=== PATIENT | female | born 1945 | race Caucasian/White ===

== ENCOUNTER 2016-05-08 02:24 | Emergency (ER) | payer MEDICARE ==
[~2016-05-08] VITALS: Ht 152.4 cm; Wt 54.0 kg
[~2016-05-08 02:24] MED LIST: AMLO-512 PO; ASPI81 PO; ATOR40TA28 PO; CLON.1 PO; GABA-529 PO; INSU3INS3 SQ; ISOS60TA4 PO; METO-327 PO; METO10TA3 PO; SERT50TA12 PO; SEVEC800 PO; VALS40TA10 PO
[2016-05-08 02:40] LABS: GLUCOSE,POINT OF CARE 132 MG/DL (70-110)
[2016-05-08 03:55] LABS: BASOPHILS # (AUTO) 0.02 K/uL (0.00-0.20); BASOPHILS % (AUTO) 0.3 % (0.0-2.0); EOSINOPHILS # (AUTO) 0.08 K/uL (0.00-0.70); EOSINOPHILS % (AUTO) 1.31 % (1.0-6.0); HEMATOCRIT 34.6 % (36-46); HEMOGLOBIN 11.4 g/dL (12.0-16.0); LYMPHOCYTES # (AUTO) 1.5 K/uL (1.0-4.8); LYMPHOCYTES % (AUTO) 24.6 % (22.0-44.0); MEAN CORPUSCULAR HEMOGLOBIN 30.2 pg (26.0-34.0); MEAN CORPUSCULAR HGB CONC 32.9 G/dL (31.0-37.0); MEAN CORPUSCULAR VOLUME 92 fL (80-100); MONOCYTES # (AUTO) 0.7 K/uL (0.1-1.0); MONOCYTES % (AUTO) 11.3 % (2.0-9.0); NEUTROPHILS # (AUTO) 3.9 K/uL (1.8-7.7); NEUTROPHILS % (AUTO) 62.5 % (40.0-70.0); PLATELET COUNT (AUTO) 161 K/uL (150-450); RED BLOOD CELL COUNT(AUTO) 3.78 MIL/uL (4.00-5.20); RED CELL DISTRIBUTION WIDTH 14.1 % (11.5-14.5); WHITE BLOOD COUNT (AUTO) 6.2 K/uL (4.5-11.0)
[2016-05-08 03:59] LABS: CALCIUM, TOTAL 8.8 mg/dL (8.8-10.5); CREATININE 7.07 mg/dL (0.60-1.30)
[2016-05-08 04:05] LABS: ALBUMIN 3.3 g/dL (3.4-5.0); BILIRUBIN,TOTAL 0.5 mg/dL (0.1-1.0); TOTAL PROTEIN, SERUM 6.2 g/dL (6.4-8.2)
[2016-05-08] MEDS ORDERED: MORPHINE SULFATE 4 MG/ML SYRINGE IVP ONE (04:15)
[2016-05-08] MEDS ORDERED: DONNATAL/LIDOCAINE/MAALOX 55 ML BOTTLE PO ONE (04:15)
[2016-05-08] MEDS ORDERED: ONDANSETRON HCL 4 MG/2 ML VIAL IVP ONE (04:15)
[2016-05-08 05:21] VITALS: BP 152/82
[2016-07-03] MEDS ORDERED: GABA-529 PO (09:14)
[2016-07-03] MEDS ORDERED: LACT30L PO (09:14)
[2016-07-03] MEDS ORDERED: ACET-784 PO (09:14)
[2016-07-03] MEDS ORDERED: ZOLP5 PO (09:14)
[2016-07-03] MEDS ORDERED: VALS80TA2 PO (09:14)
[2016-07-03] MEDS ORDERED: SUCR1TAB PO (09:14)
[2016-07-03] MEDS ORDERED: AMLO-512 PO (09:14)
[2016-07-03] MEDS ORDERED: ATOR20TA86 PO (09:14)
[2016-07-03] MEDS ORDERED: ISOS60TA4 PO (09:14)
[2016-07-03] MEDS ORDERED: CARV6 PO (09:14)
[2016-07-03] MEDS ORDERED: BISA10S PR (09:14)
[2016-07-03] MEDS ORDERED: A20IH1 IH (09:14)
[2016-07-03] MEDS ORDERED: SERT50TA12 PO (09:14)
[2016-07-03] MEDS ORDERED: HYDR-309 PO (09:14)
[2016-07-03] MEDS ORDERED: LIDO700A30 TD (09:14)
[2016-07-03] MEDS ORDERED: PANT40TA25 PO (09:14)
[2016-07-03] MEDS ORDERED: OXYC-522 PO (09:14)
== END 2016-05-08 05:23 | disposition home or self-care (01) ==
LOC: EMS 02:25 → MERGE 02:25 → EMS 05:23
DX: R10.10 Upper abdominal pain, unspecified (principal); I10 Essential (primary) hypertension; E11.29 Type 2 diabetes mellitus with other diabetic kidney complication; N28.9 Disorder of kidney and ureter, unspecified; Z79.4 Long term (current) use of insulin; Z79.82 Long term (current) use of aspirin
CPT/HCPCS: 36415; 80053; 82962; 83690; 84484; 85025; 93005; 96374; 96375; 99285; J2270; J2405

== ENCOUNTER 2016-05-11 11:10 | Emergency (ER) | payer MEDICARE ==
[~2016-05-11] VITALS: Ht 162.6 cm; Wt 75.0 kg
[2016-05-11 11:26] LABS: GLUCOSE,POINT OF CARE 126 MG/DL (70-110)
[2016-05-11] MEDS ORDERED: VALS80TA2 PO (11:34)
[2016-05-11] MEDS ORDERED: MORPHINE SULFATE 4 MG/ML SYRINGE IVP ONE (11:45)
[2016-05-11] MEDS ORDERED: DONNATAL/LIDOCAINE/MAALOX 55 ML BOTTLE PO ONE (11:45)
[2016-05-11] MEDS ORDERED: ONDANSETRON HCL 4 MG/2 ML VIAL IVP ONE (11:45)
[2016-05-11 12:15] LABS: BASOPHILS # (AUTO) 0.03 K/uL (0.00-0.20); BASOPHILS % (AUTO) 0.5 % (0.0-2.0); EOSINOPHILS # (AUTO) 0.07 K/uL (0.00-0.70); HEMATOCRIT 38.8 % (36-46); HEMOGLOBIN 12.8 g/dL (12.0-16.0); LYMPHOCYTES # (AUTO) 1.8 K/uL (1.0-4.8); LYMPHOCYTES % (AUTO) 34.9 % (22.0-44.0); MEAN CORPUSCULAR HEMOGLOBIN 30.1 pg (26.0-34.0); MEAN CORPUSCULAR HGB CONC 32.9 G/dL (31.0-37.0); MEAN CORPUSCULAR VOLUME 91 fL (80-100); MONOCYTES # (AUTO) 0.5 K/uL (0.1-1.0); MONOCYTES % (AUTO) 8.7 % (2.0-9.0); NEUTROPHILS # (AUTO) 2.9 K/uL (1.8-7.7); NEUTROPHILS % (AUTO) 54.6 % (40.0-70.0); PLATELET COUNT (AUTO) 178 K/uL (150-450); RED BLOOD CELL COUNT(AUTO) 4.25 MIL/uL (4.00-5.20); RED CELL DISTRIBUTION WIDTH 15.2 % (11.5-14.5); WHITE BLOOD COUNT (AUTO) 5.3 K/uL (4.5-11.0)
[2016-05-11 12:24] LABS: CALCIUM, TOTAL 9.2 mg/dL (8.8-10.5); CREATININE 4.34 mg/dL (0.60-1.30); POTASSIUM 4.3 mmol/L (3.5-5.1)
[2016-05-11 12:30] LABS: ALBUMIN 3.7 g/dL (3.4-5.0); BILIRUBIN,TOTAL 0.5 mg/dL (0.1-1.0); TOTAL PROTEIN, SERUM 7.3 g/dL (6.4-8.2)
[2016-05-11 14:33] VITALS: BP 188/55
[2016-07-03] MEDS ORDERED: LIDO700A30 TD (09:14)
[2016-07-03] MEDS ORDERED: OXYC-522 PO (09:14)
[2016-07-03] MEDS ORDERED: A20IH1 IH (09:14)
[2016-07-03] MEDS ORDERED: VALS80TA2 PO (09:14)
[2016-07-03] MEDS ORDERED: SERT50TA12 PO (09:14)
[2016-07-03] MEDS ORDERED: GABA-529 PO (09:14)
[2016-07-03] MEDS ORDERED: ISOS60TA4 PO (09:14)
[2016-07-03] MEDS ORDERED: HYDR-309 PO (09:14)
[2016-07-03] MEDS ORDERED: BISA10S PR (09:14)
[2016-07-03] MEDS ORDERED: CARV6 PO (09:14)
[2016-07-03] MEDS ORDERED: ACET-784 PO (09:14)
[2016-07-03] MEDS ORDERED: AMLO-512 PO (09:14)
[2016-07-03] MEDS ORDERED: ZOLP5 PO (09:14)
[2016-07-03] MEDS ORDERED: PANT40TA25 PO (09:14)
[2016-07-03] MEDS ORDERED: LACT30L PO (09:14)
[2016-07-03] MEDS ORDERED: ATOR20TA86 PO (09:14)
[2016-07-03] MEDS ORDERED: SUCR1TAB PO (09:14)
== END 2016-05-11 15:30 | disposition home or self-care (01) ==
LOC: EMS 11:13 → MERGE 11:13 → EMS 15:30
DX: R10.13 Epigastric pain (principal); I10 Essential (primary) hypertension; E11.9 Type 2 diabetes mellitus without complications; N28.9 Disorder of kidney and ureter, unspecified; Z79.4 Long term (current) use of insulin; Z79.82 Long term (current) use of aspirin
CPT/HCPCS: 36415; 71010; 80053; 82271; 82962; 83605; 83690; 84484; 85025; 93005; 96374; 96375; 99285; J2270; J2405

== ENCOUNTER 2016-05-15 04:48 | Inpatient (IN) | payer MEDICARE ==
[~2016-05-15] VITALS: Ht 152.4 cm; Wt 56.3 kg
[~2016-05-15 04:48] MED LIST changes: -VALS40TA10 PO; +VALS80TA2 PO
[2016-05-15 05:06] LABS: GLUCOSE COMMENT 1 Doctor Notified; GLUCOSE,POINT OF CARE 138 MG/DL (70-110)
[2016-05-15 05:21] LABS: BASOPHILS % (AUTO) 0.3 % (0.0-2.0); EOSINOPHILS % (AUTO) 1.4 % (1.0-6.0); HEMATOCRIT 40.4 % (36-46); HEMOGLOBIN 12.9 g/dL (12.0-16.0); LYMPHOCYTES # (AUTO) 1.9 K/uL (1.0-4.8); LYMPHOCYTES % (AUTO) 27.6 % (22.0-44.0); MEAN CORPUSCULAR HEMOGLOBIN 29.6 pg (26.0-34.0); MEAN CORPUSCULAR HGB CONC 32.1 G/dL (31.0-37.0); MEAN CORPUSCULAR VOLUME 92 fL (80-100); MONOCYTES # (AUTO) 0.6 K/uL (0.1-1.0); MONOCYTES % (AUTO) 8.6 % (2.0-9.0); NEUTROPHILS # (AUTO) 4.2 K/uL (1.8-7.7); NEUTROPHILS % (AUTO) 62.1 % (40.0-70.0); PLATELET COUNT (AUTO) 210 K/uL (150-450); RED BLOOD CELL COUNT(AUTO) 4.37 MIL/uL (4.00-5.20); RED CELL DISTRIBUTION WIDTH 14.6 % (11.5-14.5); WHITE BLOOD COUNT (AUTO) 6.8 K/uL (4.5-11.0)
[2016-05-15 05:33] LABS: CALCIUM, TOTAL 9.2 mg/dL (8.8-10.5); CREATININE 6.69 mg/dL (0.60-1.30); POTASSIUM 5.6 mmol/L (3.5-5.1)
[2016-05-15 05:39] LABS: ALBUMIN 3.9 g/dL (3.4-5.0); BILIRUBIN,TOTAL 0.4 mg/dL (0.1-1.0); TOTAL PROTEIN, SERUM 7.4 g/dL (6.4-8.2)
[2016-05-15] MEDS ORDERED: SODIUM POLYSTYRENE SULFONATE 15 GM/60 ML SUSPENSION BOTTLE PO ONE (06:45)
[2016-05-15] MEDS ORDERED: MORPHINE SULFATE 4 MG/ML SYRINGE IVP ONE ×2 (06:45→09:00)
[2016-05-15] MEDS ORDERED: DONNATAL/LIDOCAINE/MAALOX 55 ML BOTTLE PO ONE (06:45)
[2016-05-15] MEDS ORDERED: ONDANSETRON HCL 4 MG/2 ML VIAL IVP ONE ×2 (06:45→09:00)
[2016-05-15 11:23] VITALS: BP 195/89
[2016-05-15] MEDS ORDERED: BISACODYL 10 MG RECTAL RECTAL SUPPOSITORY PR PRN (11:30)
[2016-05-15] MEDS: HEPARIN SODIUM,PORCINE 5,000 UNITS/ML VIAL SQ SCH ×2 (11:30→21:08)
[2016-05-15] MEDS ORDERED: IPRATROPIUM BROMIDE 0.5 MG/2.5 ML NEB SOLUTION NEB PRN (11:30)
[2016-05-15] MEDS ORDERED: MAGNESIUM HYDROXIDE SUSPENSION 30 ML UDCUP PO PRN (11:30)
[2016-05-15] MEDS ORDERED: DEXTROSE 50%-WATER 25 GM/50 ML SYRINGE IVP PRN (11:30)
[2016-05-15] MEDS ORDERED: ALBUTEROL SULFATE 2.5 MG/0.5 ML NEB SOLUTION NEB PRN (11:30)
[2016-05-15] MEDS ORDERED: HydrALAZINE HCL 20 MG/ML VIAL IVP PRN (11:30)
[2016-05-15] MEDS ORDERED: SODIUM CHLORIDE 0.9% 2,000 ML IV ONE (14:19)
[2016-05-15] MEDS: CloNIDine HCL 0.1 MG TABLET PO SCH ×2 (15:54→21:08)
[2016-05-15 16:00] VITALS: BP 199/95
[2016-05-15] MEDS: HYDROmorphone 2 MG/ML SYRINGE IVP PRN (16:07)
[2016-05-15] MEDS ORDERED: MANNITOL 25%-12.5 GM/50 ML VIAL IVP PRN (16:15)
[2016-05-15] MEDS ORDERED: ALBUMIN HUMAN 25%-12.5GM/50ML IV BOTTLE IV PRN (16:15)
[2016-05-15] MEDS: INSULIN ASPART 100 UNITS/ML SQ PRN (17:52)
[2016-05-15 19:53] VITALS: BP 175/70
[2016-05-15] MEDS: PANTOPRAZOLE SODIUM 40 MG/VIAL IVP SCH (21:07)
[2016-05-15] MEDS: ISOSORBIDE MONONITRATE 60 MG ER TABLET PO SCH (21:08)
[2016-05-16] VITALS (8 sets, daily range): BP systolic 106–156; BP diastolic 46–76
[2016-05-16] MEDS: ONDANSETRON HCL 4 MG/2 ML VIAL IVP PRN ×3 (02:41→23:46)
[2016-05-16 06:08] LABS: BASOPHILS # (AUTO) 0.01 K/uL (0.00-0.20); BASOPHILS % (AUTO) 0.2 % (0.0-2.0); EOSINOPHILS # (AUTO) 0.07 K/uL (0.00-0.70); EOSINOPHILS % (AUTO) 1.33 % (1.0-6.0); HEMOGLOBIN 12.7 g/dL (12.0-16.0); LYMPHOCYTES # (AUTO) 1.5 K/uL (1.0-4.8); LYMPHOCYTES % (AUTO) 27.3 % (22.0-44.0); MEAN CORPUSCULAR HGB CONC 32.6 G/dL (31.0-37.0); MEAN CORPUSCULAR VOLUME 92 fL (80-100); MONOCYTES # (AUTO) 0.4 K/uL (0.1-1.0); MONOCYTES % (AUTO) 8.2 % (2.0-9.0); NEUTROPHILS # (AUTO) 3.3 K/uL (1.8-7.7); PLATELET COUNT (AUTO) 190 K/uL (150-450); RED BLOOD CELL COUNT(AUTO) 4.24 MIL/uL (4.00-5.20); RED CELL DISTRIBUTION WIDTH 15.5 % (11.5-14.5); WHITE BLOOD COUNT (AUTO) 5.3 K/uL (4.5-11.0)
[2016-05-16 06:15] LABS: HEMOGLOBIN A1C 7.1 % (4.5-6.2)
[2016-05-16 06:38] LABS: AMYLASE 39 U/L (25-115); ANION GAP 5 mmol/L (8-16); CALCIUM, TOTAL 8.7 mg/dL (8.8-10.5); CARBON DIOXIDE 32 mmol/L (22-29); CHLORIDE 97 mmol/L (98-107); CHOL/HDL RATIO 3.2 (3.9-5.7); CREATINE KINASE, TOTAL 36 U/L (26-192); CREATININE 4.22 mg/dL (0.60-1.30); GLOMERULAR FILTR. RATE CALC 10 mL/min (>60); PHOSPHORUS 2.1 mg/dL (2.5-4.9); SODIUM SERUM 134 mmol/L (136-145); THYROID STIMULATING HORMONE 1.61 uIU/mL (0.36-3.74); UREA NITROGEN, BLOOD 17 mg/dL (7-18)
[2016-05-16 07:06] LABS: GLUCOSE,POINT OF CARE 120 MG/DL (70-110)
[2016-05-16 07:06] LABS: GLUCOSE,POINT OF CARE 147 MG/DL (70-110)
[2016-05-16] MEDS ORDERED: METOPROLOL SUCCINATE 100 MG ER TABLET PO SCH (09:00)
[2016-05-16] MEDS ORDERED: PANTOPRAZOLE SODIUM 40 MG/VIAL IVP SCH (09:00)
[2016-05-16] MEDS: CloNIDine HCL 0.1 MG TABLET PO SCH ×3 (09:52→20:08)
[2016-05-16] MEDS: PANTOPRAZOLE SODIUM 40 MG/VIAL IVP SCH ×2 (09:52→20:08)
[2016-05-16] MEDS: HEPARIN SODIUM,PORCINE 5,000 UNITS/ML VIAL SQ SCH ×2 (09:53→20:08)
[2016-05-16] MEDS: AmLODIPine BESYLATE 10 MG TABLET PO SCH (09:53)
[2016-05-16] MEDS: VALSARTAN 80 MG TABLET PO SCH (09:53)
[2016-05-16] MEDS ORDERED: SODIUM CHLORIDE 0.9% 1,000 ML IV ONE ×2 (11:30→14:24)
[2016-05-16] MEDS ORDERED: EPINEPHrine 1:1,000 [1 MG/ML] AMP IVP ONE (12:00)
[2016-05-16] MEDS ORDERED: ONDANSETRON HCL 4 MG/2 ML VIAL IVP ONE (12:00)
[2016-05-16] MEDS ORDERED: PROPOFOL 1% 20 ML VIAL IVP ONE (12:00)
[2016-05-16] MEDS ORDERED: LIDOCAINE HCL/PF 2% 5 ML VIAL INJ ONE (12:00)
[2016-05-16 12:11] LABS: GLUCOSE,POINT OF CARE 152 MG/DL (70-110)
[2016-05-16] MEDS: INSULIN ASPART 100 UNITS/ML SQ PRN ×2 (18:57→20:11)
[2016-05-16] MEDS: ISOSORBIDE MONONITRATE 60 MG ER TABLET PO SCH (20:08)
[2016-05-16] MEDS: HYDROmorphone 2 MG/ML SYRINGE IVP PRN (23:46)
[2016-05-17 04:09] VITALS: BP 130/51
[2016-05-17] MEDS: INSULIN ASPART 100 UNITS/ML SQ PRN ×3 (06:10→20:12)
[2016-05-17] MEDS: ONDANSETRON HCL 4 MG/2 ML VIAL IVP PRN ×2 (06:54→16:54)
[2016-05-17 07:22] LABS: BASOPHILS % (AUTO) 0.4 % (0.0-2.0); EOSINOPHILS % (AUTO) 1.4 % (1.0-6.0); HEMATOCRIT 36.5 % (36-46); HEMOGLOBIN 11.7 g/dL (12.0-16.0); LYMPHOCYTES # (AUTO) 2.2 K/uL (1.0-4.8); LYMPHOCYTES % (AUTO) 37.9 % (22.0-44.0); MEAN CORPUSCULAR HEMOGLOBIN 29.6 pg (26.0-34.0); MEAN CORPUSCULAR HGB CONC 32.1 G/dL (31.0-37.0); MEAN CORPUSCULAR VOLUME 92 fL (80-100); MONOCYTES # (AUTO) 0.6 K/uL (0.1-1.0); NEUTROPHILS # (AUTO) 2.8 K/uL (1.8-7.7); NEUTROPHILS % (AUTO) 49.3 % (40.0-70.0); PLATELET COUNT (AUTO) 191 K/uL (150-450); RED BLOOD CELL COUNT(AUTO) 3.96 MIL/uL (4.00-5.20); RED CELL DISTRIBUTION WIDTH 15.1 % (11.5-14.5); WHITE BLOOD COUNT (AUTO) 5.7 K/uL (4.5-11.0)
[2016-05-17 07:35] LABS: CREATININE 6.03 mg/dL (0.60-1.30); PHOSPHORUS 2.4 mg/dL (2.5-4.9); POTASSIUM 4.6 mmol/L (3.5-5.1)
[2016-05-17 07:37] LABS: MAGNESIUM 4.7 mg/dL (1.80-2.40)
[2016-05-17 07:45] VITALS: BP 110/54
[2016-05-17] MEDS ORDERED: GADOBUTROL 1 MMOL/ML 10 ML VIAL IVP ONE (08:38)
[2016-05-17] MEDS: HEPARIN SODIUM,PORCINE 5,000 UNITS/ML VIAL SQ SCH ×2 (09:43→20:09)
[2016-05-17] MEDS: PANTOPRAZOLE SODIUM 40 MG/VIAL IVP SCH ×2 (09:43→20:09)
[2016-05-17] MEDS: VALSARTAN 80 MG TABLET PO SCH (09:44)
[2016-05-17] MEDS: CloNIDine HCL 0.1 MG TABLET PO SCH ×3 (09:44→20:09)
[2016-05-17] MEDS: AmLODIPine BESYLATE 10 MG TABLET PO SCH (09:44)
[2016-05-17 11:24] VITALS: BP 103/50
[2016-05-17] MEDS ORDERED: MANNITOL 25%-12.5 GM/50 ML VIAL IVP PRN (13:00)
[2016-05-17] MEDS ORDERED: ALBUMIN HUMAN 25%-12.5GM/50ML IV BOTTLE IV PRN (13:00)
[2016-05-17 15:25] VITALS: BP 163/70
[2016-05-17] MEDS: HYDROmorphone 2 MG/ML SYRINGE IVP PRN (16:55)
[2016-05-17 19:28] VITALS: BP 109/54
[2016-05-17 19:46] LABS: GLUCOSE,POINT OF CARE 146 MG/DL (70-110)
[2016-05-17] MEDS: ISOSORBIDE MONONITRATE 60 MG ER TABLET PO SCH (20:09)
[2016-05-17 23:20] VITALS: BP 124/64
[2016-05-18] VITALS (7 sets, daily range): BP systolic 123–159; BP diastolic 41–72
[2016-05-18] MEDS: ONDANSETRON HCL 4 MG/2 ML VIAL IVP PRN ×4 (01:42→21:27)
[2016-05-18] MEDS: HYDROmorphone 2 MG/ML SYRINGE IVP PRN ×3 (01:42→16:51)
[2016-05-18] MEDS ORDERED: 0.9% SODIUM CHLORIDE 10 ML SYRINGE IVP PRN (02:45)
[2016-05-18] MEDS: INSULIN ASPART 100 UNITS/ML SQ PRN ×4 (06:00→20:39)
[2016-05-18 06:45] LABS: BASOPHILS % (AUTO) 0.4 % (0.0-2.0); EOSINOPHILS % (AUTO) 1.6 % (1.0-6.0); HEMATOCRIT 35.8 % (36-46); HEMOGLOBIN 11.5 g/dL (12.0-16.0); LYMPHOCYTES # (AUTO) 1.7 K/uL (1.0-4.8); LYMPHOCYTES % (AUTO) 33.2 % (22.0-44.0); MEAN CORPUSCULAR HEMOGLOBIN 30.1 pg (26.0-34.0); MEAN CORPUSCULAR HGB CONC 32.2 G/dL (31.0-37.0); MEAN CORPUSCULAR VOLUME 93 fL (80-100); MONOCYTES # (AUTO) 0.6 K/uL (0.1-1.0); MONOCYTES % (AUTO) 11.7 % (2.0-9.0); NEUTROPHILS # (AUTO) 2.7 K/uL (1.8-7.7); NEUTROPHILS % (AUTO) 53.1 % (40.0-70.0); PLATELET COUNT (AUTO) 194 K/uL (150-450); RED BLOOD CELL COUNT(AUTO) 3.84 MIL/uL (4.00-5.20); RED CELL DISTRIBUTION WIDTH 15.5 % (11.5-14.5); WHITE BLOOD COUNT (AUTO) 5.2 K/uL (4.5-11.0)
[2016-05-18 07:07] LABS: CALCIUM, TOTAL 9.3 mg/dL (8.8-10.5); CREATININE 3.59 mg/dL (0.60-1.30); MAGNESIUM 3.2 mg/dL (1.80-2.40); PHOSPHORUS 2.1 mg/dL (2.5-4.9); POTASSIUM 4.6 mmol/L (3.5-5.1)
[2016-05-18] MEDS: VALSARTAN 80 MG TABLET PO SCH (08:07)
[2016-05-18] MEDS: AmLODIPine BESYLATE 10 MG TABLET PO SCH (08:07)
[2016-05-18] MEDS: CloNIDine HCL 0.1 MG TABLET PO SCH ×4 (08:07→20:31)
[2016-05-18] MEDS: PANTOPRAZOLE SODIUM 40 MG/VIAL IVP SCH ×2 (08:07→20:30)
[2016-05-18] MEDS: HEPARIN SODIUM,PORCINE 5,000 UNITS/ML VIAL SQ SCH ×2 (08:07→20:31)
[2016-05-18] MEDS ORDERED: POTASSIUM PHOS,M-BASIC-D-BASIC 20 MMOL in DEXTROSE 5%-WATER 150 ML IV ONE (09:00)
[2016-05-18] MEDS: METOCLOPRAMIDE HCL 5 MG/ML 2 ML VIAL IVP SCH ×2 (12:07→20:31)
[2016-05-18 12:27] LABS: GLUCOSE,POINT OF CARE 259 MG/DL (70-110)
[2016-05-18 12:28] LABS: GLUCOSE,POINT OF CARE 149 MG/DL (70-110)
[2016-05-18 12:28] LABS: GLUCOSE COMMENT 1 Received Meds; GLUCOSE,POINT OF CARE 175 MG/DL (70-110)
[2016-05-18] MEDS ORDERED: SODIUM CHLORIDE 0.9% 1,000 ML IV ONE ×2 (14:59)
[2016-05-18] MEDS: ISOSORBIDE MONONITRATE 60 MG ER TABLET PO SCH (20:31)
[2016-05-18] MEDS ORDERED: ZOLPIDEM TARTRATE 5 MG TABLET PO PRN (22:30)
[2016-05-19] VITALS (9 sets, daily range): BP systolic 110–179; BP diastolic 51–79
[2016-05-19] MEDS: INSULIN ASPART 100 UNITS/ML SQ PRN ×3 (05:29→21:21)
[2016-05-19] MEDS: HYDROmorphone 2 MG/ML SYRINGE IVP PRN ×2 (06:11→10:17)
[2016-05-19 07:04] LABS: BILIRUBIN,TOTAL 0.6 mg/dL (0.1-1.0); CREATININE 3.15 mg/dL (0.60-1.30); POTASSIUM 4.3 mmol/L (3.5-5.1); TOTAL PROTEIN, SERUM 6.2 g/dL (6.4-8.2)
[2016-05-19] MEDS ORDERED: MANNITOL 25%-12.5 GM/50 ML VIAL IVP PRN (08:15)
[2016-05-19] MEDS: HEPARIN SODIUM,PORCINE 5,000 UNITS/ML VIAL SQ SCH ×2 (08:48→21:10)
[2016-05-19] MEDS: PANTOPRAZOLE SODIUM 40 MG/VIAL IVP SCH ×2 (08:48→21:10)
[2016-05-19] MEDS: AmLODIPine BESYLATE 10 MG TABLET PO SCH (09:39)
[2016-05-19] MEDS: ONDANSETRON HCL 4 MG/2 ML VIAL IVP PRN ×2 (09:39→14:01)
[2016-05-19] MEDS: METOCLOPRAMIDE HCL 5 MG/ML 2 ML VIAL IVP SCH ×2 (11:48→17:07)
[2016-05-19 12:17] LABS: GLUCOSE COMMENT 1 Received Meds; GLUCOSE,POINT OF CARE 152 MG/DL (70-110)
[2016-05-19 12:22] LABS: GLUCOSE COMMENT 1 Received Meds; GLUCOSE,POINT OF CARE 147 MG/DL (70-110)
[2016-05-19] MEDS: VITAMIN B COMP/VIT C/FOLIC ACID CAPSULE PO SCH (12:43)
[2016-05-19] MEDS: CloNIDine HCL 0.1 MG TABLET PO SCH ×3 (12:43→21:09)
[2016-05-19] MEDS: VALSARTAN 80 MG TABLET PO SCH (12:44)
[2016-05-19] MEDS: ISOSORBIDE MONONITRATE 60 MG ER TABLET PO SCH (21:09)
[2016-05-19] MEDS: LORazepam 2 MG/ML VIAL IVP PRN (21:10)
[2016-05-20 03:21] LABS: GLUCOSE,POINT OF CARE 245 MG/DL (70-110)
[2016-05-20 03:21] LABS: GLUCOSE COMMENT 1 Received Meds; GLUCOSE,POINT OF CARE 197 MG/DL (70-110)
[2016-05-20 04:26] VITALS: BP 105/43
[2016-05-20] MEDS: INSULIN ASPART 100 UNITS/ML SQ PRN ×2 (06:38→12:07)
[2016-05-20 07:26] VITALS: BP 98/45
[2016-05-20] MEDS: METOCLOPRAMIDE HCL 5 MG/ML 2 ML VIAL IVP SCH ×2 (07:47→11:31)
[2016-05-20] MEDS: HEPARIN SODIUM,PORCINE 5,000 UNITS/ML VIAL SQ SCH (07:48)
[2016-05-20] MEDS: PANTOPRAZOLE SODIUM 40 MG/VIAL IVP SCH (07:50)
[2016-05-20] MEDS: CloNIDine HCL 0.1 MG TABLET PO SCH (07:51)
[2016-05-20] MEDS: VALSARTAN 80 MG TABLET PO SCH (07:51)
[2016-05-20] MEDS: VITAMIN B COMP/VIT C/FOLIC ACID CAPSULE PO SCH (08:46)
[2016-05-20] MEDS ORDERED: AmLODIPine BESYLATE 5 MG TABLET PO SCH (09:00)
[2016-05-20 10:06] VITALS: BP 145/64
[2016-05-20 10:30] LABS: ANION GAP 4 mmol/L (8-16); BASOPHILS # (AUTO) 0.02 K/uL (0.00-0.20); BASOPHILS % (AUTO) 0.3 % (0.0-2.0); CALCIUM, TOTAL 10.1 mg/dL (8.8-10.5); CARBON DIOXIDE 30 mmol/L (22-29); CHLORIDE 97 mmol/L (98-107); CREATININE 3.39 mg/dL (0.60-1.30); EOSINOPHILS # (AUTO) 0.08 K/uL (0.00-0.70); EOSINOPHILS % (AUTO) 1.25 % (1.0-6.0); GLOMERULAR FILTR. RATE CALC 13 mL/min (>60); HEMATOCRIT 36.1 % (36-46); HEMOGLOBIN 11.7 g/dL (12.0-16.0); LYMPHOCYTES # (AUTO) 2.6 K/uL (1.0-4.8); LYMPHOCYTES % (AUTO) 39.5 % (22.0-44.0); MEAN CORPUSCULAR HEMOGLOBIN 29.9 pg (26.0-34.0); MEAN CORPUSCULAR HGB CONC 32.5 G/dL (31.0-37.0); MEAN CORPUSCULAR VOLUME 92 fL (80-100); MONOCYTES # (AUTO) 0.6 K/uL (0.1-1.0); MONOCYTES % (AUTO) 9.5 % (2.0-9.0); NEUTROPHILS # (AUTO) 3.2 K/uL (1.8-7.7); NEUTROPHILS % (AUTO) 49.4 % (40.0-70.0); PLATELET COUNT (AUTO) 205 K/uL (150-450); POTASSIUM 4.1 mmol/L (3.5-5.1); RED BLOOD CELL COUNT(AUTO) 3.93 MIL/uL (4.00-5.20); RED CELL DISTRIBUTION WIDTH 15.2 % (11.5-14.5); SODIUM SERUM 131 mmol/L (136-145); UREA NITROGEN, BLOOD 17 mg/dL (7-18); WHITE BLOOD COUNT (AUTO) 6.5 K/uL (4.5-11.0)
[2016-05-20 10:35] LABS: ALANINE AMINOTRANSFERASE 27 U/L (12-78); ALBUMIN 3.4 g/dL (3.4-5.0); ASPARTATE AMINOTRANSFERASE 22 U/L (15-37); BILIRUBIN,TOTAL 0.6 mg/dL (0.1-1.0); CREATINE KINASE, TOTAL 59 U/L (26-192); TOTAL PROTEIN, SERUM 6.7 g/dL (6.4-8.2)
[2016-05-20 10:57] VITALS: BP 155/56
[2016-05-20] MEDS ORDERED: PANT40TA PO (11:42)
[2016-05-20] MEDS: LORazepam 2 MG/ML VIAL IVP PRN (12:04)
[2016-05-28 12:32] LABS: GLUCOSE,POINT OF CARE 253 MG/DL (70-110)
[2016-05-28 12:32] LABS: GLUCOSE,POINT OF CARE 164 MG/DL (70-110)
[2016-05-28 12:32] LABS: GLUCOSE COMMENT 1 Received Meds; GLUCOSE,POINT OF CARE 244 MG/DL (70-110)
[2016-05-28 12:32] LABS: GLUCOSE,POINT OF CARE 145 MG/DL (70-110)
[2016-05-28 12:42] LABS: GLUCOSE COMMENT 1 Received Meds; GLUCOSE,POINT OF CARE 266 MG/DL (70-110)
[2016-05-28 12:42] LABS: GLUCOSE,POINT OF CARE 130 MG/DL (70-110)
[2016-05-28 12:42] LABS: GLUCOSE COMMENT 1 Received Meds; GLUCOSE,POINT OF CARE 251 MG/DL (70-110)
[2016-05-28 12:42] LABS: GLUCOSE COMMENT 1 Received Meds; GLUCOSE,POINT OF CARE 197 MG/DL (70-110)
[2016-05-28 12:42] LABS: GLUCOSE COMMENT 1 Received Meds; GLUCOSE,POINT OF CARE 246 MG/DL (70-110)
[2016-07-03] MEDS ORDERED: A20IH1 IH (09:14)
[2016-07-03] MEDS ORDERED: SERT50TA12 PO (09:14)
[2016-07-03] MEDS ORDERED: CARV6 PO (09:14)
[2016-07-03] MEDS ORDERED: LIDO700A30 TD (09:14)
[2016-07-03] MEDS ORDERED: LACT30L PO (09:14)
[2016-07-03] MEDS ORDERED: PANT40TA25 PO (09:14)
[2016-07-03] MEDS ORDERED: ACET-784 PO (09:14)
[2016-07-03] MEDS ORDERED: AMLO-512 PO (09:14)
[2016-07-03] MEDS ORDERED: OXYC-522 PO (09:14)
[2016-07-03] MEDS ORDERED: ZOLP5 PO (09:14)
[2016-07-03] MEDS ORDERED: VALS80TA2 PO (09:14)
[2016-07-03] MEDS ORDERED: BISA10S PR (09:14)
[2016-07-03] MEDS ORDERED: ATOR20TA86 PO (09:14)
[2016-07-03] MEDS ORDERED: HYDR-309 PO (09:14)
[2016-07-03] MEDS ORDERED: ISOS60TA4 PO (09:14)
[2016-07-03] MEDS ORDERED: SUCR1TAB PO (09:14)
[2016-07-03] MEDS ORDERED: GABA-529 PO (09:14)
== END 2016-05-20 13:45 | disposition home health service (06) | DRG 73 ==
LOC: EMS 04:50 → MERGE 09:54 → 5N 09:54
PROVIDERS: ADMIT Internal Medicine Geriatric Medicine; ATTEND Internal Medicine Geriatric Medicine
PROC: 0DB68ZX Excision of Stomach, Via Natural or Artificial Opening Endoscopic, Diagnostic (ICD-10-PCS; principal; 2016-05-16 12:30)
PROC: 5A1D60Z (ICD-10-PCS; 2016-05-17)
DX: E11.43 Type 2 diabetes mellitus with diabetic autonomic (poly)neuropathy (principal); N18.6 End stage renal disease; I13.2 Hypertensive heart and chronic kidney disease with heart failure and with stage 5 chronic kidney disease, or end stage renal disease; K29.70 Gastritis, unspecified, without bleeding; E87.5 Hyperkalemia; E11.21 Type 2 diabetes mellitus with diabetic nephropathy; E11.22 Type 2 diabetes mellitus with diabetic chronic kidney disease; D63.1 Anemia in chronic kidney disease; E21.3 Hyperparathyroidism, unspecified; E78.5 Hyperlipidemia, unspecified; K21.9 Gastro-esophageal reflux disease without esophagitis; Z96.652 Presence of left artificial knee joint; I50.9 Heart failure, unspecified; K31.84 Gastroparesis; I25.10 Atherosclerotic heart disease of native coronary artery without angina pectoris; Z99.2 Dependence on renal dialysis; Z79.82 Long term (current) use of aspirin; Z79.4 Long term (current) use of insulin; Z79.899 Other long term (current) drug therapy; Z87.11 Personal history of peptic ulcer disease; Z90.49 Acquired absence of other specified parts of digestive tract; Z98.890 Other specified postprocedural states
CPT/HCPCS: 74022; 74183; 76700; 82306; 82607; 82746; 82962; 83036; 83735; 84100; 84439; 84443; 87340; 88305; 88312; 90935; 93005; 93306; 96374; 96375; 96376; 99285; A9585; C9113; J0171; J1170; J1644; J2060; J2270; J2405; J2704; J2765; J3490; J7030; J7060

== ENCOUNTER 2016-05-26 20:57 | Emergency (ER) | payer MEDICARE ==
[~2016-05-26] VITALS: Ht 154.9 cm; Wt 70.0 kg
[~2016-05-26 20:57] MED LIST changes: +PANT40TA PO
[2016-05-26 21:21] LABS: GLUCOSE,POINT OF CARE 130 MG/DL (70-110)
[2016-05-26 21:48] LABS: BASOPHILS # (AUTO) 0.03 K/uL (0.00-0.20); BASOPHILS % (AUTO) 0.4 % (0.0-2.0); EOSINOPHILS # (AUTO) 0.02 K/uL (0.00-0.70); EOSINOPHILS % (AUTO) 0.23 % (1.0-6.0); HEMATOCRIT 38.1 % (36-46); HEMOGLOBIN 12.6 g/dL (12.0-16.0); LYMPHOCYTES # (AUTO) 2.1 K/uL (1.0-4.8); LYMPHOCYTES % (AUTO) 27.1 % (22.0-44.0); MEAN CORPUSCULAR HEMOGLOBIN 30.3 pg (26.0-34.0); MEAN CORPUSCULAR HGB CONC 33.2 G/dL (31.0-37.0); MEAN CORPUSCULAR VOLUME 91 fL (80-100); MONOCYTES # (AUTO) 0.7 K/uL (0.1-1.0); MONOCYTES % (AUTO) 9.1 % (2.0-9.0); NEUTROPHILS # (AUTO) 4.8 K/uL (1.8-7.7); NEUTROPHILS % (AUTO) 63.1 % (40.0-70.0); PLATELET COUNT (AUTO) 202 K/uL (150-450); RED BLOOD CELL COUNT(AUTO) 4.16 MIL/uL (4.00-5.20); RED CELL DISTRIBUTION WIDTH 15.8 % (11.5-14.5); WHITE BLOOD COUNT (AUTO) 7.6 K/uL (4.5-11.0)
[2016-05-26 22:08] LABS: ANION GAP 6 mmol/L (8-16); CALCIUM, TOTAL 9.7 mg/dL (8.8-10.5); CARBON DIOXIDE 35 mmol/L (22-29); CHLORIDE 94 mmol/L (98-107); CREATININE 3.48 mg/dL (0.60-1.30); GLOMERULAR FILTR. RATE CALC 13 mL/min (>60); POTASSIUM 3.8 mmol/L (3.5-5.1); SODIUM SERUM 135 mmol/L (136-145); UREA NITROGEN, BLOOD 30 mg/dL (7-18)
[2016-05-26 22:20] LABS: LACTIC ACID 2.3 mmol/L (0.4-2.0)
[2016-05-26 22:22] LABS: ALANINE AMINOTRANSFERASE 27 U/L (12-78); ALBUMIN 3.7 g/dL (3.4-5.0); ASPARTATE AMINOTRANSFERASE 19 U/L (15-37); BILIRUBIN,TOTAL 0.5 mg/dL (0.1-1.0); TOTAL PROTEIN, SERUM 7.6 g/dL (6.4-8.2)
[2016-05-26] MEDS ORDERED: METOCLOPRAMIDE HCL 5 MG/ML 2 ML VIAL IVP ONE (22:30)
[2016-05-26] MEDS ORDERED: HYDROmorphone 2 MG/ML SYRINGE IVP ONE (22:30)
[2016-05-26] MEDS ORDERED: ONDANSETRON HCL 4 MG/2 ML VIAL IVP ONE (22:30)
[2016-05-26 23:45] LABS: REFLEX LACTIC ACID? YES YES
[2016-05-27 01:32] VITALS: BP 122/48
[2016-05-27] MEDS ORDERED: METO-323 PO (23:04)
[2016-05-27] MEDS ORDERED: ATOR10TA84 PO (23:04)
[2016-05-27] MEDS ORDERED: SERT50TA12 PO (23:11)
[2016-05-27] MEDS ORDERED: SEVEC800 PO (23:11)
[2016-05-27] MEDS ORDERED: ISOS60TA4 PO (23:11)
[2016-05-27] MEDS ORDERED: PANT40TA25 PO (23:11)
[2016-05-27] MEDS ORDERED: INSLAN SQ (23:11)
[2016-05-27] MEDS ORDERED: CLON.1 PO (23:11)
[2016-05-27] MEDS ORDERED: VALS80TA2 PO (23:11)
[2016-05-27] MEDS ORDERED: ASPI81 PO (23:11)
[2016-05-27] MEDS ORDERED: GABA-529 PO (23:11)
[2016-05-27] MEDS ORDERED: METO-296 PO (23:11)
[2016-05-27] MEDS ORDERED: AMLO-512 PO (23:11)
[2016-07-03] MEDS ORDERED: A20IH1 IH (09:14)
[2016-07-03] MEDS ORDERED: ACET-784 PO (09:14)
[2016-07-03] MEDS ORDERED: PANT40TA25 PO (09:14)
[2016-07-03] MEDS ORDERED: SERT50TA12 PO (09:14)
[2016-07-03] MEDS ORDERED: OXYC-522 PO (09:14)
[2016-07-03] MEDS ORDERED: BISA10S PR (09:14)
[2016-07-03] MEDS ORDERED: AMLO-512 PO (09:14)
[2016-07-03] MEDS ORDERED: SUCR1TAB PO (09:14)
[2016-07-03] MEDS ORDERED: VALS80TA2 PO (09:14)
[2016-07-03] MEDS ORDERED: GABA-529 PO (09:14)
[2016-07-03] MEDS ORDERED: HYDR-309 PO (09:14)
[2016-07-03] MEDS ORDERED: CARV6 PO (09:14)
[2016-07-03] MEDS ORDERED: LACT30L PO (09:14)
[2016-07-03] MEDS ORDERED: ATOR20TA86 PO (09:14)
[2016-07-03] MEDS ORDERED: ISOS60TA4 PO (09:14)
[2016-07-03] MEDS ORDERED: ZOLP5 PO (09:14)
[2016-07-03] MEDS ORDERED: LIDO700A30 TD (09:14)
== END 2016-05-27 02:10 | disposition home or self-care (01) ==
LOC: MERGE 21:00 → EMS 21:00
DX: E11.43 Type 2 diabetes mellitus with diabetic autonomic (poly)neuropathy (principal); K31.84 Gastroparesis; E11.22 Type 2 diabetes mellitus with diabetic chronic kidney disease; N18.6 End stage renal disease; R07.89 Other chest pain; I10 Essential (primary) hypertension; Z79.4 Long term (current) use of insulin; Z99.2 Dependence on renal dialysis
CPT/HCPCS: 36415; 71010; 80053; 82962; 83605; 83690; 84484; 85025; 93005; 96374; 96375; 99285; J1170; J2405; J2765

== ENCOUNTER 2016-05-27 22:42 | Inpatient (IN) | payer MEDICARE, OTHER ==
[~2016-05-27] VITALS: Ht 152.4 cm; Wt 60.7 kg
[2016-05-27 23:01] LABS: GLUCOSE,POINT OF CARE 140 MG/DL (70-110)
[2016-05-27] MEDS ORDERED: ATOR10TA84 PO (23:04)
[2016-05-27] MEDS ORDERED: METO-323 PO (23:04)
[2016-05-27] MEDS ORDERED: PANT40TA25 PO (23:11)
[2016-05-27] MEDS ORDERED: AMLO-512 PO (23:11)
[2016-05-27] MEDS ORDERED: CLON.1 PO (23:11)
[2016-05-27] MEDS ORDERED: SERT50TA12 PO (23:11)
[2016-05-27] MEDS ORDERED: VALS80TA2 PO (23:11)
[2016-05-27] MEDS ORDERED: ASPI81 PO (23:11)
[2016-05-27] MEDS ORDERED: METO-296 PO (23:11)
[2016-05-27] MEDS ORDERED: INSLAN SQ (23:11)
[2016-05-27] MEDS ORDERED: SEVEC800 PO (23:11)
[2016-05-27] MEDS ORDERED: ISOS60TA4 PO (23:11)
[2016-05-27] MEDS ORDERED: GABA-529 PO (23:11)
[2016-05-27] MEDS ORDERED: METOCLOPRAMIDE HCL 5 MG/ML 2 ML VIAL IVP ONE (23:15)
[2016-05-27] MEDS ORDERED: BARIUM SULFATE 0.1% SUSPENSION 450 ML BOTTLE PO ONE (23:15)
[2016-05-27] MEDS ORDERED: ACETAMINOPHEN 1000 MG/ISO-OSM 100 ML IV ONE (23:15)
[2016-05-27 23:40] LABS: BASOPHILS # (AUTO) 0.02 K/uL (0.00-0.20); BASOPHILS % (AUTO) 0.3 % (0.0-2.0); EOSINOPHILS # (AUTO) 0.03 K/uL (0.00-0.70); HEMATOCRIT 38.4 % (36-46); HEMOGLOBIN 12.7 g/dL (12.0-16.0); LYMPHOCYTES # (AUTO) 1.8 K/uL (1.0-4.8); LYMPHOCYTES % (AUTO) 23.9 % (22.0-44.0); MEAN CORPUSCULAR HEMOGLOBIN 30.2 pg (26.0-34.0); MEAN CORPUSCULAR VOLUME 92 fL (80-100); MONOCYTES # (AUTO) 0.7 K/uL (0.1-1.0); MONOCYTES % (AUTO) 9.1 % (2.0-9.0); NEUTROPHILS # (AUTO) 4.9 K/uL (1.8-7.7); NEUTROPHILS % (AUTO) 66.3 % (40.0-70.0); PLATELET COUNT (AUTO) 202 K/uL (150-450); RED BLOOD CELL COUNT(AUTO) 4.19 MIL/uL (4.00-5.20); RED CELL DISTRIBUTION WIDTH 16.5 % (11.5-14.5); WHITE BLOOD COUNT (AUTO) 7.4 K/uL (4.5-11.0)
[2016-05-27 23:45] LABS: CALCIUM, TOTAL 9.7 mg/dL (8.8-10.5); CREATININE 5.26 mg/dL (0.60-1.30); POTASSIUM 4.2 mmol/L (3.5-5.1)
[2016-05-27 23:51] LABS: ALBUMIN 3.7 g/dL (3.4-5.0); BILIRUBIN,TOTAL 0.5 mg/dL (0.1-1.0); TOTAL PROTEIN, SERUM 7.3 g/dL (6.4-8.2)
[2016-05-28] MEDS ORDERED: DiphenhydrAMINE HCL 50 MG/ML VIAL IVP ONE (00:15)
[2016-05-28] MEDS ORDERED: METOCLOPRAMIDE HCL 5 MG/ML 2 ML VIAL IVP ONE (00:15)
[2016-05-28] MEDS ORDERED: SODIUM CHLORIDE 0.9% 100 ML ONE (00:31)
[2016-05-28] MEDS ORDERED: IODIXANOL 320 MG/ML 100 ML VIAL ONE (00:31)
[2016-05-28] MEDS ORDERED: MORPHINE SULFATE 4 MG/ML SYRINGE IVP ONE ×2 (00:45→03:30)
[2016-05-28] MEDS ORDERED: ONDANSETRON HCL 4 MG/2 ML VIAL IVP ONE (02:45)
[2016-05-28] MEDS ORDERED: ONDANSETRON HCL 4 MG/2 ML VIAL IVP PRN ×2 (05:00→06:45)
[2016-05-28] MEDS ORDERED: MORPHINE SULFATE 4 MG/ML SYRINGE IVP PRN (05:00)
[2016-05-28] MEDS ORDERED: INSULIN DETEMIR 100 UNITS/ML SQ ONE (06:30)
[2016-05-28] MEDS ORDERED: DEXTROSE 50%-WATER 25 GM/50 ML SYRINGE IVP PRN (06:45)
[2016-05-28] MEDS ORDERED: OxyCODONE HCL/ACETAMINOPHEN 5-325 MG TABLET PO PRN ×2 (06:45)
[2016-05-28] MEDS ORDERED: 0.9% SODIUM CHLORIDE 10 ML SYRINGE IVP PRN (06:45)
[2016-05-28] MEDS ORDERED: MORPHINE SULFATE 2 MG/ML SYRINGE IVP PRN (07:00)
[2016-05-28 07:47] LABS: GLUCOSE,POINT OF CARE 185 MG/DL (70-110)
[2016-05-28] MEDS ORDERED: ASPIRIN 81 MG CHEWABLE TABLET PO SCH (09:00)
[2016-05-28] MEDS ORDERED: METOPROLOL SUCCINATE 25 MG ER TABLET PO SCH (09:00)
[2016-05-28] MEDS ORDERED: PANTOPRAZOLE SODIUM 40 MG/VIAL IVP SCH (09:00)
[2016-05-28] MEDS ORDERED: PANTOPRAZOLE SODIUM 40 MG DR TABLET PO SCH (09:00)
[2016-05-28] MEDS ORDERED: ATORVASTATIN CALCIUM 10 MG TABLET PO SCH (09:00)
[2016-05-28] MEDS: SEVELAMER CARBONATE 800 MG TABLET PO SCH ×3 (09:52→18:00)
[2016-05-28] MEDS: AmLODIPine BESYLATE 10 MG TABLET PO SCH (09:53)
[2016-05-28] MEDS: SERTRALINE HCL 50 MG TABLET PO SCH (09:53)
[2016-05-28] MEDS: METOCLOPRAMIDE HCL 10 MG TABLET PO SCH ×3 (09:53→21:15)
[2016-05-28 11:06] VITALS: BP 145/59
[2016-05-28 11:58] LABS: GLUCOSE COMMENT 1 Received Meds; GLUCOSE,POINT OF CARE 127 MG/DL (70-110)
[2016-05-28] MEDS: SUCRALFATE 1 GM/10 ML SUSPENSION UDCUP PO SCH ×4 (13:00→21:17)
[2016-05-28] MEDS: GABAPENTIN 100 MG CAPSULE PO SCH ×2 (14:34→21:16)
[2016-05-28] MEDS: CloNIDine HCL 0.1 MG TABLET PO SCH ×3 (14:35→21:16)
[2016-05-28] MEDS: VALSARTAN 80 MG TABLET PO SCH (14:35)
[2016-05-28] MEDS: DOCUSATE SODIUM 100 MG CAPSULE PO SCH ×2 (14:35→21:16)
[2016-05-28] MEDS: ISOSORBIDE MONONITRATE 60 MG ER TABLET PO SCH (14:38)
[2016-05-28 16:27] VITALS: BP 92/50
[2016-05-28] MEDS: INSULIN ASPART 100 UNITS/ML SQ PRN (16:56)
[2016-05-28 19:16] LABS: GLUCOSE COMMENT 1 Received Meds; GLUCOSE,POINT OF CARE 155 MG/DL (70-110)
[2016-05-28 19:21] VITALS: BP 108/43
[2016-05-28] MEDS: ATORVASTATIN CALCIUM 20 MG TABLET PO SCH (21:15)
[2016-05-28] MEDS: PANTOPRAZOLE SODIUM 40 MG/VIAL IVP SCH (21:17)
[2016-05-28 23:14] VITALS: BP 117/65
[2016-05-29 01:30] VITALS: BP 89/42
[2016-05-29 06:02] LABS: GLUCOSE,POINT OF CARE 125 MG/DL (70-110)
[2016-05-29 06:12] LABS: GLUCOSE COMMENT 1 Juice/Food/D50 Given; GLUCOSE,POINT OF CARE 53 MG/DL (70-110)
[2016-05-29 06:12] LABS: GLUCOSE,POINT OF CARE 97 MG/DL (70-110)
[2016-05-29 07:14] LABS: BASOPHILS % (AUTO) 0.3 % (0.0-2.0); EOSINOPHILS % (AUTO) 1.1 % (1.0-6.0); HEMATOCRIT 30.4 % (36-46); LYMPHOCYTES # (AUTO) 1.7 K/uL (1.0-4.8); LYMPHOCYTES % (AUTO) 26.5 % (22.0-44.0); MEAN CORPUSCULAR HEMOGLOBIN 29.6 pg (26.0-34.0); MEAN CORPUSCULAR HGB CONC 32.4 G/dL (31.0-37.0); MEAN CORPUSCULAR VOLUME 91 fL (80-100); MONOCYTES # (AUTO) 0.5 K/uL (0.1-1.0); MONOCYTES % (AUTO) 8.3 % (2.0-9.0); NEUTROPHILS # (AUTO) 4.2 K/uL (1.8-7.7); NEUTROPHILS % (AUTO) 63.8 % (40.0-70.0); PLATELET COUNT (AUTO) 182 K/uL (150-450); RED BLOOD CELL COUNT(AUTO) 3.34 MIL/uL (4.00-5.20); RED CELL DISTRIBUTION WIDTH 16.4 % (11.5-14.5); WHITE BLOOD COUNT (AUTO) 6.5 K/uL (4.5-11.0)
[2016-05-29 07:17] LABS: HEMOGLOBIN 9.9 g/dL (12.0-16.0)
[2016-05-29 07:31] LABS: CALCIUM, TOTAL 8.6 mg/dL (8.8-10.5); CHOL/HDL RATIO 3.2 (3.9-5.7); CREATININE 6.95 mg/dL (0.60-1.30); MAGNESIUM 3.9 mg/dL (1.80-2.40); POTASSIUM 5.7 mmol/L (3.5-5.1); THYROID STIMULATING HORMONE 1.01 uIU/mL (0.36-3.74)
[2016-05-29 07:52] VITALS: BP 94/42
[2016-05-29] MEDS: PANTOPRAZOLE SODIUM 40 MG/VIAL IVP SCH ×2 (08:08→20:02)
[2016-05-29] MEDS: SEVELAMER CARBONATE 800 MG TABLET PO SCH ×3 (08:08→18:30)
[2016-05-29] MEDS: DOCUSATE SODIUM 100 MG CAPSULE PO SCH ×2 (08:08→20:02)
[2016-05-29] MEDS: SUCRALFATE 1 GM/10 ML SUSPENSION UDCUP PO SCH ×4 (08:08→20:02)
[2016-05-29] MEDS: METOCLOPRAMIDE HCL 10 MG TABLET PO SCH ×3 (08:09→20:02)
[2016-05-29] MEDS: GABAPENTIN 100 MG CAPSULE PO SCH ×2 (08:09→20:02)
[2016-05-29] MEDS: SERTRALINE HCL 50 MG TABLET PO SCH (08:09)
[2016-05-29] MEDS: CloNIDine HCL 0.1 MG TABLET PO SCH ×3 (08:18→21:00)
[2016-05-29] MEDS: ISOSORBIDE MONONITRATE 60 MG ER TABLET PO SCH (08:18)
[2016-05-29] MEDS: VALSARTAN 80 MG TABLET PO SCH (08:18)
[2016-05-29] MEDS: AmLODIPine BESYLATE 10 MG TABLET PO SCH (08:19)
[2016-05-29 08:53] LABS: HEMOGLOBIN A1C 7.6 % (4.5-6.2)
[2016-05-29] MEDS ORDERED: METOPROLOL SUCCINATE 100 MG ER TABLET PO SCH (09:00)
[2016-05-29] MEDS ORDERED: CARV3.1231 PO (15:05)
[2016-05-29 15:35] VITALS: BP 148/59
[2016-05-29 16:56] VITALS: BP 158/61
[2016-05-29 18:07] LABS: GLUCOSE,POINT OF CARE 127 MG/DL (70-110)
[2016-05-29 19:40] VITALS: BP 112/58
[2016-05-29] MEDS: ATORVASTATIN CALCIUM 20 MG TABLET PO SCH (20:03)
[2016-05-29 20:30] VITALS: BP 100/55
[2016-05-29] MEDS: INSULIN ASPART 100 UNITS/ML SQ PRN (23:54)
[2016-05-30 00:01] VITALS: BP 118/48
[2016-05-30 03:57] LABS: GLUCOSE COMMENT 1 Received Meds; GLUCOSE,POINT OF CARE 243 MG/DL (70-110)
[2016-05-30 04:25] VITALS: BP 105/56
[2016-05-30 05:57] LABS: GLUCOSE,POINT OF CARE 104 MG/DL (70-110)
[2016-05-30 08:08] VITALS: BP 145/72
[2016-05-30] MEDS: GABAPENTIN 100 MG CAPSULE PO SCH ×2 (08:44→21:07)
[2016-05-30] MEDS: METOCLOPRAMIDE HCL 10 MG TABLET PO SCH ×3 (08:44→21:08)
[2016-05-30] MEDS: PANTOPRAZOLE SODIUM 40 MG/VIAL IVP SCH ×2 (08:44→21:07)
[2016-05-30] MEDS: DOCUSATE SODIUM 100 MG CAPSULE PO SCH ×2 (08:44→21:07)
[2016-05-30] MEDS: SERTRALINE HCL 50 MG TABLET PO SCH (08:44)
[2016-05-30] MEDS: SEVELAMER CARBONATE 800 MG TABLET PO SCH ×3 (08:44→18:13)
[2016-05-30] MEDS: SUCRALFATE 1 GM/10 ML SUSPENSION UDCUP PO SCH ×4 (08:45→21:08)
[2016-05-30] MEDS: VALSARTAN 80 MG TABLET PO SCH (08:51)
[2016-05-30] MEDS: AmLODIPine BESYLATE 10 MG TABLET PO SCH (08:51)
[2016-05-30] MEDS: INSULIN ASPART 100 UNITS/ML SQ PRN ×2 (11:26→17:32)
[2016-05-30 11:59] LABS: GLUCOSE,POINT OF CARE 148 MG/DL (70-110)
[2016-05-30] MEDS: CloNIDine HCL 0.1 MG TABLET PO SCH ×3 (12:35→21:00)
[2016-05-30] MEDS: ISOSORBIDE MONONITRATE 60 MG ER TABLET PO SCH (12:36)
[2016-05-30 12:40] VITALS: BP 136/64
[2016-05-30 16:04] VITALS: BP 139/54
[2016-05-30 17:46] LABS: GLUCOSE COMMENT 1 Received Meds; GLUCOSE,POINT OF CARE 154 MG/DL (70-110)
[2016-05-30] MEDS: ATORVASTATIN CALCIUM 20 MG TABLET PO SCH (21:07)
[2016-05-30 21:08] VITALS: BP 100/50
[2016-05-30 21:36] LABS: GLUCOSE,POINT OF CARE 128 MG/DL (70-110)
[2016-05-31] VITALS (7 sets, daily range): BP systolic 98–150; BP diastolic 45–59
[2016-05-31 06:31] LABS: GLUCOSE COMMENT 1 Received Meds; GLUCOSE,POINT OF CARE 150 MG/DL (70-110)
[2016-05-31 06:35] LABS: BASOPHILS % (AUTO) 0.4 % (0.0-2.0); EOSINOPHILS % (AUTO) 1.2 % (1.0-6.0); HEMATOCRIT 28.7 % (36-46); HEMOGLOBIN 9.3 g/dL (12.0-16.0); LYMPHOCYTES % (AUTO) 25.3 % (22.0-44.0); MEAN CORPUSCULAR HEMOGLOBIN 29.8 pg (26.0-34.0); MEAN CORPUSCULAR HGB CONC 32.4 G/dL (31.0-37.0); MEAN CORPUSCULAR VOLUME 92 fL (80-100); MONOCYTES # (AUTO) 0.7 K/uL (0.1-1.0); NEUTROPHILS % (AUTO) 64.1 % (40.0-70.0); PLATELET COUNT (AUTO) 165 K/uL (150-450); RED BLOOD CELL COUNT(AUTO) 3.12 MIL/uL (4.00-5.20); RED CELL DISTRIBUTION WIDTH 16.5 % (11.5-14.5); WHITE BLOOD COUNT (AUTO) 7.8 K/uL (4.5-11.0)
[2016-05-31 07:59] LABS: CALCIUM, TOTAL 9.1 mg/dL (8.8-10.5); CREATININE 6.32 mg/dL (0.60-1.30); MAGNESIUM 2.9 mg/dL (1.80-2.40)
[2016-05-31 08:18] LABS: POTASSIUM 6.4 mmol/L (3.5-5.1)
[2016-05-31] MEDS: ISOSORBIDE MONONITRATE 60 MG ER TABLET PO SCH (09:00)
[2016-05-31] MEDS: AmLODIPine BESYLATE 10 MG TABLET PO SCH (09:00)
[2016-05-31] MEDS: VALSARTAN 80 MG TABLET PO SCH (09:00)
[2016-05-31] MEDS: CloNIDine HCL 0.1 MG TABLET PO SCH ×3 (09:00→20:34)
[2016-05-31] MEDS: DOCUSATE SODIUM 100 MG CAPSULE PO SCH ×2 (09:00→20:34)
[2016-05-31] MEDS: PANTOPRAZOLE SODIUM 40 MG/VIAL IVP SCH ×2 (10:16→20:34)
[2016-05-31] MEDS: SUCRALFATE 1 GM/10 ML SUSPENSION UDCUP PO SCH ×4 (10:16→20:34)
[2016-05-31] MEDS: GABAPENTIN 100 MG CAPSULE PO SCH ×2 (10:17→20:35)
[2016-05-31] MEDS: METOCLOPRAMIDE HCL 10 MG TABLET PO SCH ×3 (10:17→20:34)
[2016-05-31] MEDS: SERTRALINE HCL 50 MG TABLET PO SCH (11:59)
[2016-05-31 12:17] LABS: GLUCOSE,POINT OF CARE 204 MG/DL (70-110)
[2016-05-31] MEDS: INSULIN ASPART 100 UNITS/ML SQ PRN ×3 (12:36→20:53)
[2016-05-31] MEDS ORDERED: SODIUM CHLORIDE 0.9% 2,000 ML IV ONE (14:08)
[2016-05-31] MEDS: ERYTHROMYCIN 0.5% 3.5 GM TUBE OPHTHALMIC OINTMENT TP SCH ×2 (18:14→20:35)
[2016-05-31] MEDS: ATORVASTATIN CALCIUM 20 MG TABLET PO SCH (20:34)
[2016-05-31 21:07] LABS: GLUCOSE,POINT OF CARE 177 MG/DL (70-110)
[2016-05-31 21:07] LABS: GLUCOSE COMMENT 1 Received Meds; GLUCOSE,POINT OF CARE 188 MG/DL (70-110)
[2016-06-01 05:50] VITALS: BP 130/52
[2016-06-01 06:13] LABS: GLUCOSE,POINT OF CARE 127 MG/DL (70-110)
[2016-06-01 07:20] VITALS: BP 164/66
[2016-06-01] MEDS: DOCUSATE SODIUM 100 MG CAPSULE PO SCH (07:55)
[2016-06-01] MEDS: ISOSORBIDE MONONITRATE 60 MG ER TABLET PO SCH (07:55)
[2016-06-01] MEDS: GABAPENTIN 100 MG CAPSULE PO SCH (07:55)
[2016-06-01] MEDS: METOCLOPRAMIDE HCL 10 MG TABLET PO SCH (07:55)
[2016-06-01] MEDS: SUCRALFATE 1 GM/10 ML SUSPENSION UDCUP PO SCH ×2 (07:55→12:32)
[2016-06-01] MEDS: AmLODIPine BESYLATE 10 MG TABLET PO SCH (07:55)
[2016-06-01] MEDS: SERTRALINE HCL 50 MG TABLET PO SCH (07:55)
[2016-06-01] MEDS: ERYTHROMYCIN 0.5% 3.5 GM TUBE OPHTHALMIC OINTMENT TP SCH ×2 (07:56→12:32)
[2016-06-01] MEDS: VALSARTAN 80 MG TABLET PO SCH (07:58)
[2016-06-01] MEDS: PANTOPRAZOLE SODIUM 40 MG/VIAL IVP SCH (07:59)
[2016-06-01] MEDS: CloNIDine HCL 0.1 MG TABLET PO SCH (09:00)
[2016-06-01] MEDS ORDERED: METO5TAB87 PO (10:52)
[2016-06-01] MEDS ORDERED: PANT40TA25 PO (10:53)
[2016-06-01] MEDS ORDERED: SUCR1ORA5 PO (10:54)
[2016-06-01] MEDS ORDERED: ERYTOO OU (10:55)
[2016-06-01 11:22] VITALS: BP 124/60
[2016-06-01 11:57] LABS: GLUCOSE COMMENT 1 Received Meds; GLUCOSE,POINT OF CARE 275 MG/DL (70-110)
[2016-06-01] MEDS: INSULIN ASPART 100 UNITS/ML SQ PRN (11:59)
[2016-06-02] MEDS ORDERED: EPOETIN ALFA 10,000 UNITS/ML VIAL SQ SCH (09:00)
[2016-07-03] MEDS ORDERED: ATOR20TA86 PO (09:14)
[2016-07-03] MEDS ORDERED: ZOLP5 PO (09:14)
[2016-07-03] MEDS ORDERED: LIDO700A30 TD (09:14)
[2016-07-03] MEDS ORDERED: BISA10S PR (09:14)
[2016-07-03] MEDS ORDERED: OXYC-522 PO (09:14)
[2016-07-03] MEDS ORDERED: A20IH1 IH (09:14)
[2016-07-03] MEDS ORDERED: GABA-529 PO (09:14)
[2016-07-03] MEDS ORDERED: LACT30L PO (09:14)
[2016-07-03] MEDS ORDERED: ISOS60TA4 PO (09:14)
[2016-07-03] MEDS ORDERED: PANT40TA25 PO (09:14)
[2016-07-03] MEDS ORDERED: AMLO-512 PO (09:14)
[2016-07-03] MEDS ORDERED: SERT50TA12 PO (09:14)
[2016-07-03] MEDS ORDERED: VALS80TA2 PO (09:14)
[2016-07-03] MEDS ORDERED: CARV6 PO (09:14)
[2016-07-03] MEDS ORDERED: ACET-784 PO (09:14)
[2016-07-03] MEDS ORDERED: HYDR-309 PO (09:14)
[2016-07-03] MEDS ORDERED: SUCR1TAB PO (09:14)
== END 2016-06-01 13:50 | disposition home or self-care (01) | DRG 391 ==
LOC: EMS 22:43 → 6N 05-28 09:49
PROVIDERS: ADMIT Internal Medicine Geriatric Medicine; ATTEND Internal Medicine Geriatric Medicine
PROC: 5A1D60Z (ICD-10-PCS; principal; 2016-05-29)
DX: K29.70 Gastritis, unspecified, without bleeding (principal); N18.6 End stage renal disease; I13.2 Hypertensive heart and chronic kidney disease with heart failure and with stage 5 chronic kidney disease, or end stage renal disease; E87.1 Hypo-osmolality and hyponatremia; E11.43 Type 2 diabetes mellitus with diabetic autonomic (poly)neuropathy; D64.9 Anemia, unspecified; E11.21 Type 2 diabetes mellitus with diabetic nephropathy; E11.22 Type 2 diabetes mellitus with diabetic chronic kidney disease; E11.319 Type 2 diabetes mellitus with unspecified diabetic retinopathy without macular edema; E78.00 Pure hypercholesterolemia, unspecified; E78.5 Hyperlipidemia, unspecified; I50.9 Heart failure, unspecified; K31.84 Gastroparesis; K83.8 Other specified diseases of biliary tract; H00.019 Hordeolum externum unspecified eye, unspecified eyelid; I25.119 Atherosclerotic heart disease of native coronary artery with unspecified angina pectoris; Z87.11 Personal history of peptic ulcer disease; Z98.890 Other specified postprocedural states; Z79.899 Other long term (current) drug therapy; Z79.82 Long term (current) use of aspirin; Z99.2 Dependence on renal dialysis; Z90.49 Acquired absence of other specified parts of digestive tract; Z79.4 Long term (current) use of insulin
CPT/HCPCS: 74177; 82306; 82607; 82746; 82962; 83036; 83735; 84100; 84439; 84443; 86301; 87081; 87340; 90935; 93005; 96365; 96375; 96376; 99285; C9113; J0131; J0885; J1200; J2270; J2405; J2765; J7030; J7050; Q9967

== ENCOUNTER 2016-06-03 06:10 | Inpatient (IN) | payer MEDICARE, OTHER ==
[~2016-06-03] VITALS: Ht 152.4 cm; Wt 60.3 kg
[~2016-06-03 06:10] MED LIST changes: +ATOR10TA84 PO; +CARV3.1231 PO; +ERYTOO OU; +INSLAN SQ; +METO-296 PO; +METO-323 PO; +METO5TAB87 PO; +PANT40TA25 PO; +SUCR1ORA5 PO
[2016-06-03] MEDS ORDERED: HYDROmorphone 2 MG/ML SYRINGE IVP ONE ×2 (07:30→11:30)
[2016-06-03] MEDS ORDERED: ONDANSETRON HCL 4 MG/2 ML VIAL IVP ONE (07:30)
[2016-06-03 07:55] LABS: BASOPHILS % (AUTO) 0.3 % (0.0-2.0); EOSINOPHILS % (AUTO) 0.4 % (1.0-6.0); LYMPHOCYTES # (AUTO) 1.3 K/uL (1.0-4.8); MEAN CORPUSCULAR HEMOGLOBIN 29.9 pg (26.0-34.0); MEAN CORPUSCULAR HGB CONC 32.3 G/dL (31.0-37.0); MEAN CORPUSCULAR VOLUME 93 fL (80-100); MONOCYTES # (AUTO) 0.6 K/uL (0.1-1.0); MONOCYTES % (AUTO) 4.6 % (2.0-9.0); NEUTROPHILS # (AUTO) 10.9 K/uL (1.8-7.7); NEUTROPHILS % (AUTO) 84.7 % (40.0-70.0); PLATELET COUNT (AUTO) 209 K/uL (150-450); RED BLOOD CELL COUNT(AUTO) 3.67 MIL/uL (4.00-5.20); WHITE BLOOD COUNT (AUTO) 12.9 K/uL (4.5-11.0)
[2016-06-03 08:09] LABS: PROTHROMBIN TIME 10.1 SEC (9.4-11.6)
[2016-06-03 08:15] LABS: ANION GAP 6 mmol/L (8-16); CALCIUM, TOTAL 9.3 mg/dL (8.8-10.5); CARBON DIOXIDE 32 mmol/L (22-29); CHLORIDE 98 mmol/L (98-107); CREATININE 4.06 mg/dL (0.60-1.30); GLOMERULAR FILTR. RATE CALC 11 mL/min (>60); POTASSIUM 4.9 mmol/L (3.5-5.1); SODIUM SERUM 136 mmol/L (136-145); UREA NITROGEN, BLOOD 34 mg/dL (7-18)
[2016-06-03 08:17] LABS: B-TYPE NATRIURETIC PEPTIDE 255 pg/mL (0-100)
[2016-06-03 08:42] LABS: ALANINE AMINOTRANSFERASE 26 U/L (12-78); ALBUMIN 3.3 g/dL (3.4-5.0); ASPARTATE AMINOTRANSFERASE 22 U/L (15-37); BILIRUBIN,TOTAL 0.4 mg/dL (0.1-1.0); CREATINE KINASE MB 0.5 ng/mL (0-5); CREATINE KINASE, TOTAL 89 U/L (26-192); TOTAL PROTEIN, SERUM 6.5 g/dL (6.4-8.2)
[2016-06-03] MEDS ORDERED: CARV6 PO (11:05)
[2016-06-03] MEDS ORDERED: CefTRIAXone 1 GM/DEXTROSE 50 ML IV ONE (11:15)
[2016-06-03 12:52] LABS: APPEARANCE,URINE CLOUDY (CLEAR); GLUCOSE, URINE (UA) NEGATIVE (NEGATIVE); KETONES,URINE NEGATIVE (NEGATIVE); LEUKOCYTE ESTERASE ,URINE TRACE (NEGATIVE); OCCULT BLOOD,URINE NEGATIVE (NEGATIVE); PROTEIN,URINE SEE CONFIRM (NEGATIVE)
[2016-06-03 12:56] LABS: ADD UA MICROSCOPIC YES
[2016-06-03 12:58] LABS: RBC,URINE None Seen /HPF (0-2); SQUAMOUS EPITHELIAL CELL,UR Many /LPF (None Seen); SULFOSALICYLIC ACID,URINE 3+ (Negative)
[2016-06-03] MEDS ORDERED: ACETAMINOPHEN 325 MG TABLET PO PRN (14:15)
[2016-06-03] MEDS ORDERED: HYDROCODONE/ACETAMINOPHEN 5-325 MG TABLET PO PRN (14:15)
[2016-06-03] MEDS ORDERED: ONDANSETRON HCL 4 MG/2 ML VIAL IVP PRN (14:15)
[2016-06-03] MEDS ORDERED: PANTOPRAZOLE SODIUM 40 MG DR TABLET PO SCH (14:15)
[2016-06-03] MEDS ORDERED: 0.9% SODIUM CHLORIDE 10 ML SYRINGE IVP PRN ×2 (14:15)
[2016-06-03] MEDS ORDERED: IPRATROPIUM BROMIDE 0.5 MG/2.5 ML NEB SOLUTION NEB PRN (14:15)
[2016-06-03] MEDS ORDERED: ALBUTEROL SULFATE 2.5 MG/0.5 ML NEB SOLUTION NEB PRN (14:15)
[2016-06-03] MEDS: CloNIDine HCL 0.1 MG TABLET PO SCH ×2 (15:20→19:44)
[2016-06-03] MEDS: AmLODIPine BESYLATE 10 MG TABLET PO SCH (15:20)
[2016-06-03] MEDS: PANTOPRAZOLE SODIUM 40 MG DR TABLET PO SCH ×2 (15:20→19:44)
[2016-06-03] MEDS: CARVEDILOL 6.25 MG TABLET PO SCH ×2 (15:20→19:44)
[2016-06-03] MEDS: DOCUSATE SODIUM 250 MG CAPSULE PO SCH ×2 (15:20→20:44)
[2016-06-03] MEDS: HEPARIN SODIUM,PORCINE 5,000 UNITS/ML VIAL SQ SCH ×2 (15:21→19:46)
[2016-06-03] MEDS: ISOSORBIDE MONONITRATE 60 MG ER TABLET PO SCH (15:21)
[2016-06-03] MEDS: METOCLOPRAMIDE HCL 5 MG TABLET PO SCH ×2 (15:21→19:44)
[2016-06-03] MEDS: GABAPENTIN 100 MG CAPSULE PO SCH ×2 (15:21→19:44)
[2016-06-03] MEDS: ERYTHROMYCIN 0.5% 3.5 GM TUBE OPHTHALMIC OINTMENT OU SCH ×2 (15:22→19:45)
[2016-06-03] MEDS: SUCRALFATE 1 GM/10 ML SUSPENSION UDCUP PO SCH ×2 (15:23→19:44)
[2016-06-03] MEDS: LIDOCAINE HCL 5% TRANSDERMAL PATCH TD SCH (15:24)
[2016-06-03 15:37] VITALS: BP 161/64
[2016-06-03] MEDS: SEVELAMER CARBONATE 800 MG TABLET PO SCH (17:56)
[2016-06-03] MEDS: VITAMIN B COMP/VIT C/FOLIC ACID CAPSULE PO SCH (17:56)
[2016-06-03 19:30] VITALS: BP 126/48
[2016-06-03] MEDS: ATORVASTATIN CALCIUM 20 MG TABLET PO SCH (19:44)
[2016-06-03] MEDS: METOPROLOL SUCCINATE 25 MG ER TABLET PO SCH (19:45)
[2016-06-03] MEDS: MORPHINE SULFATE 2 MG/ML SYRINGE IVP PRN (19:52)
[2016-06-03 20:27] LABS: GLUCOSE,POINT OF CARE 189 MG/DL (70-110)
[2016-06-03] MEDS: INSULIN DETEMIR 100 UNITS/ML SQ SCH (20:42)
[2016-06-03 20:51] LABS: GLUCOSE COMMENT 1 Received Meds; GLUCOSE,POINT OF CARE 306 MG/DL (70-110)
[2016-06-03] MEDS: -LIDODERM PATCH NOTE- MISC SCH ×2 (21:00)
[2016-06-04] VITALS (7 sets, daily range): BP systolic 109–156; BP diastolic 44–83
[2016-06-04] MEDS ORDERED: RINGERS SOLUTION,LACTATED 1,000 ML IV SCH
[2016-06-04] MEDS: MORPHINE SULFATE 2 MG/ML SYRINGE IVP PRN ×3 (01:18→21:07)
[2016-06-04 05:37] LABS: GLUCOSE,POINT OF CARE 244 MG/DL (70-110)
[2016-06-04 06:15] LABS: BASOPHILS # (AUTO) 0.02 K/uL (0.00-0.20); BASOPHILS % (AUTO) 0.3 % (0.0-2.0); EOSINOPHILS # (AUTO) 0.14 K/uL (0.00-0.70); EOSINOPHILS % (AUTO) 1.98 % (1.0-6.0); HEMATOCRIT 28.1 % (36-46); HEMOGLOBIN 9.6 g/dL (12.0-16.0); LYMPHOCYTES # (AUTO) 1.3 K/uL (1.0-4.8); LYMPHOCYTES % (AUTO) 17.5 % (22.0-44.0); MEAN CORPUSCULAR HEMOGLOBIN 30.9 pg (26.0-34.0); MEAN CORPUSCULAR HGB CONC 34.3 G/dL (31.0-37.0); MEAN CORPUSCULAR VOLUME 90 fL (80-100); MONOCYTES # (AUTO) 0.6 K/uL (0.1-1.0); NEUTROPHILS # (AUTO) 5.2 K/uL (1.8-7.7); NEUTROPHILS % (AUTO) 72.3 % (40.0-70.0); PLATELET COUNT (AUTO) 201 K/uL (150-450); RED BLOOD CELL COUNT(AUTO) 3.12 MIL/uL (4.00-5.20); RED CELL DISTRIBUTION WIDTH 16.3 % (11.5-14.5); WHITE BLOOD COUNT (AUTO) 7.2 K/uL (4.5-11.0)
[2016-06-04 07:10] LABS: CALCIUM, TOTAL 9.4 mg/dL (8.8-10.5); CREATININE 5.62 mg/dL (0.60-1.30); MAGNESIUM 2.9 mg/dL (1.80-2.40); PHOSPHORUS 1.6 mg/dL (2.5-4.9)
[2016-06-04 07:18] LABS: POTASSIUM 6.2 mmol/L (3.5-5.1)
[2016-06-04] MEDS ORDERED: BUPIVACAINE HCL/PF 0.5% 30 ML VIAL ONE (07:38)
[2016-06-04] MEDS ORDERED: SODIUM CHLORIDE 0.9% 1,000 ML IV ONE (07:38)
[2016-06-04] MEDS ORDERED: SODIUM CL IRRIG SOLN BAG 3,000 ML IRRIG ONE (07:38)
[2016-06-04] MEDS ORDERED: BUPIVACAINE HCL/PF 0.25% 30 ML VIAL ONE (07:43)
[2016-06-04] MEDS: SEVELAMER CARBONATE 800 MG TABLET PO SCH ×3 (08:00→18:34)
[2016-06-04] MEDS ORDERED: TRANEXAMIC ACID 1,000 MG in DEXTROSE 5%-WATER 50 ML IV ONE (08:00)
[2016-06-04] MEDS: DOCUSATE SODIUM 250 MG CAPSULE PO SCH ×4 (08:18→20:51)
[2016-06-04] MEDS: CloNIDine HCL 0.1 MG TABLET PO SCH ×3 (08:18→19:59)
[2016-06-04] MEDS: SUCRALFATE 1 GM/10 ML SUSPENSION UDCUP PO SCH ×4 (08:18→19:59)
[2016-06-04] MEDS: ERYTHROMYCIN 0.5% 3.5 GM TUBE OPHTHALMIC OINTMENT OU SCH ×4 (08:18→20:00)
[2016-06-04] MEDS: METOCLOPRAMIDE HCL 5 MG TABLET PO SCH ×3 (08:19→19:59)
[2016-06-04] MEDS: HEPARIN SODIUM,PORCINE 5,000 UNITS/ML VIAL SQ SCH ×2 (08:19→19:59)
[2016-06-04] MEDS: SERTRALINE HCL 50 MG TABLET PO SCH (08:19)
[2016-06-04] MEDS: METOPROLOL SUCCINATE 25 MG ER TABLET PO SCH ×2 (08:19→19:59)
[2016-06-04] MEDS: GABAPENTIN 100 MG CAPSULE PO SCH ×2 (08:20→19:59)
[2016-06-04] MEDS: VALSARTAN 80 MG TABLET PO SCH (08:20)
[2016-06-04] MEDS: ISOSORBIDE MONONITRATE 60 MG ER TABLET PO SCH (08:20)
[2016-06-04] MEDS: CARVEDILOL 6.25 MG TABLET PO SCH ×2 (08:20→19:59)
[2016-06-04] MEDS: AmLODIPine BESYLATE 10 MG TABLET PO SCH (08:20)
[2016-06-04] MEDS: VITAMIN B COMP/VIT C/FOLIC ACID CAPSULE PO SCH (08:20)
[2016-06-04] MEDS: PANTOPRAZOLE SODIUM 40 MG DR TABLET PO SCH ×2 (08:21→19:59)
[2016-06-04] MEDS ORDERED: VANCOMYCIN HCL 1 GM/VIAL ONE (08:29)
[2016-06-04] MEDS ORDERED: SODIUM CHLORIDE 0.9% 0 ML ONE (08:29)
[2016-06-04] MEDS ORDERED: SODIUM CHLORIDE 0.9% 250 ML IV ONE (08:30)
[2016-06-04] MEDS: LIDOCAINE HCL 5% TRANSDERMAL PATCH TD SCH (09:00)
[2016-06-04] MEDS ORDERED: FentaNYL CITRATE-PF 100 MCG/2 ML VIAL IVP PRN (09:30)
[2016-06-04] MEDS ORDERED: HYDROmorphone 2 MG/ML SYRINGE IVP PRN ×2 (09:30)
[2016-06-04] MEDS ORDERED: MEPERIDINE-PF 25 MG/ML SYRINGE IVP PRN (09:30)
[2016-06-04] MEDS ORDERED: ONDANSETRON HCL 4 MG/2 ML VIAL IVP PRN (09:30)
[2016-06-04] MEDS ORDERED: PROMETHAZINE HCL 25 MG/ML VIAL IM PRN (09:30)
[2016-06-04] MEDS ORDERED: ACETAMINOPHEN 1000 MG/ISO-OSM 100 ML IV ONE (09:54)
[2016-06-04] MEDS: ACETAMINOPHEN 1000 MG/ISO-OSM 100 ML IV SCH ×3 (09:55→21:03)
[2016-06-04] MEDS ORDERED: EPHEDrine SULFATE 50 MG/ML VIAL IM ONE (12:00)
[2016-06-04] MEDS ORDERED: 0.9% SODIUM CHLORIDE 10 ML VIAL IVP ONE (12:00)
[2016-06-04] MEDS ORDERED: CefTRIAXone 1 GM/DEXTROSE 50 ML IV SCH (12:00)
[2016-06-04] MEDS ORDERED: MORPHINE SULFATE/PF 0.5 MG/ML 10 ML AMP IVP ONE (12:00)
[2016-06-04] MEDS ORDERED: PROPOFOL 1% 20 ML VIAL IVP ONE (12:00)
[2016-06-04] MEDS ORDERED: KETOROLAC TROMETHAMINE 60 MG/2 ML VIAL IM ONE (12:00)
[2016-06-04] MEDS ORDERED: FentaNYL CITRATE-PF 100 MCG/2 ML VIAL IVP ONE (12:00)
[2016-06-04 12:52] LABS: GLUCOSE,POINT OF CARE 60 MG/DL (70-110)
[2016-06-04] MEDS ORDERED: ALBUMIN HUMAN 25%-12.5GM/50ML IV BOTTLE IV PRN (14:30)
[2016-06-04] MEDS ORDERED: MANNITOL 25%-12.5 GM/50 ML VIAL IVP PRN (14:30)
[2016-06-04 15:38] LABS: BASOPHILS % (AUTO) 0.4 % (0.0-2.0); EOSINOPHILS % (AUTO) 1.6 % (1.0-6.0); HEMATOCRIT 30.1 % (36-46); HEMOGLOBIN 9.9 g/dL (12.0-16.0); LYMPHOCYTES # (AUTO) 1.3 K/uL (1.0-4.8); LYMPHOCYTES % (AUTO) 14.4 % (22.0-44.0); MEAN CORPUSCULAR HGB CONC 32.9 G/dL (31.0-37.0); MEAN CORPUSCULAR VOLUME 91 fL (80-100); MONOCYTES # (AUTO) 0.6 K/uL (0.1-1.0); NEUTROPHILS # (AUTO) 6.9 K/uL (1.8-7.7); NEUTROPHILS % (AUTO) 76.6 % (40.0-70.0); PLATELET COUNT (AUTO) 189 K/uL (150-450)
[2016-06-04 15:51] LABS: PROTHROMBIN TIME 10.1 SEC (9.4-11.6)
[2016-06-04] MEDS: CeFAZolin 2 GM/DEXTROSE 50 ML IV SCH ×2 (17:31→19:59)
[2016-06-04] MEDS: ATORVASTATIN CALCIUM 20 MG TABLET PO SCH (19:59)
[2016-06-04] MEDS: OXYGEN THERAPY IH SCH (20:00)
[2016-06-04] MEDS ORDERED: SODIUM CHLORIDE 0.9% 500 ML IV ONE (20:04)
[2016-06-04] MEDS: INSULIN DETEMIR 100 UNITS/ML SQ SCH (20:34)
[2016-06-04 20:37] LABS: GLUCOSE,POINT OF CARE 299 MG/DL (70-110)
[2016-06-04] MEDS: -LIDODERM PATCH NOTE- MISC SCH ×2 (21:01)
[2016-06-05] MEDS: CeFAZolin 2 GM/DEXTROSE 50 ML IV SCH (02:29)
[2016-06-05] MEDS: ACETAMINOPHEN 1000 MG/ISO-OSM 100 ML IV SCH ×2 (03:39→09:30)
[2016-06-05 04:43] VITALS: BP 111/49
[2016-06-05 06:37] LABS: GLUCOSE,POINT OF CARE 212 MG/DL (70-110)
[2016-06-05 06:42] LABS: BASOPHILS % (AUTO) 0.2 % (0.0-2.0); EOSINOPHILS % (AUTO) 3.4 % (1.0-6.0); HEMATOCRIT 25.9 % (36-46); HEMOGLOBIN 8.5 g/dL (12.0-16.0); LYMPHOCYTES # (AUTO) 1.2 K/uL (1.0-4.8); MEAN CORPUSCULAR HEMOGLOBIN 30.2 pg (26.0-34.0); MEAN CORPUSCULAR HGB CONC 32.7 G/dL (31.0-37.0); MEAN CORPUSCULAR VOLUME 92 fL (80-100); MONOCYTES # (AUTO) 0.5 K/uL (0.1-1.0); MONOCYTES % (AUTO) 8.3 % (2.0-9.0); NEUTROPHILS # (AUTO) 4.3 K/uL (1.8-7.7); NEUTROPHILS % (AUTO) 69.1 % (40.0-70.0); PLATELET COUNT (AUTO) 166 K/uL (150-450); RED BLOOD CELL COUNT(AUTO) 2.81 MIL/uL (4.00-5.20); RED CELL DISTRIBUTION WIDTH 16.1 % (11.5-14.5); WHITE BLOOD COUNT (AUTO) 6.2 K/uL (4.5-11.0)
[2016-06-05 07:04] LABS: ALBUMIN 2.3 g/dL (3.4-5.0); BILIRUBIN,TOTAL 0.2 mg/dL (0.1-1.0); CALCIUM, TOTAL 8.9 mg/dL (8.8-10.5); CREATININE 3.85 mg/dL (0.60-1.30); MAGNESIUM 2.3 mg/dL (1.80-2.40); PHOSPHORUS 2.6 mg/dL (2.5-4.9); TOTAL PROTEIN, SERUM 5.7 g/dL (6.4-8.2)
[2016-06-05] MEDS: OXYGEN THERAPY IH SCH ×2 (08:00→20:00)
[2016-06-05 08:01] VITALS: BP 130/55
[2016-06-05] MEDS: VITAMIN B COMP/VIT C/FOLIC ACID CAPSULE PO SCH (08:51)
[2016-06-05] MEDS: AmLODIPine BESYLATE 10 MG TABLET PO SCH (08:51)
[2016-06-05] MEDS: ISOSORBIDE MONONITRATE 60 MG ER TABLET PO SCH (08:51)
[2016-06-05] MEDS: SUCRALFATE 1 GM/10 ML SUSPENSION UDCUP PO SCH ×4 (08:51→19:59)
[2016-06-05] MEDS: CARVEDILOL 6.25 MG TABLET PO SCH ×2 (08:51→20:00)
[2016-06-05] MEDS: VALSARTAN 80 MG TABLET PO SCH (08:51)
[2016-06-05] MEDS: GABAPENTIN 100 MG CAPSULE PO SCH ×2 (08:52→20:00)
[2016-06-05] MEDS: HEPARIN SODIUM,PORCINE 5,000 UNITS/ML VIAL SQ SCH ×2 (08:52→22:16)
[2016-06-05] MEDS: SEVELAMER CARBONATE 800 MG TABLET PO SCH ×3 (08:52→17:41)
[2016-06-05] MEDS: CloNIDine HCL 0.1 MG TABLET PO SCH ×3 (08:52→21:00)
[2016-06-05] MEDS: METOCLOPRAMIDE HCL 5 MG TABLET PO SCH ×3 (08:52→20:00)
[2016-06-05] MEDS: SERTRALINE HCL 50 MG TABLET PO SCH (08:52)
[2016-06-05] MEDS: METOPROLOL SUCCINATE 25 MG ER TABLET PO SCH ×2 (08:53→21:00)
[2016-06-05] MEDS: DOCUSATE SODIUM 250 MG CAPSULE PO SCH ×3 (08:54→20:00)
[2016-06-05] MEDS: PANTOPRAZOLE SODIUM 40 MG DR TABLET PO SCH ×2 (08:55→20:00)
[2016-06-05] MEDS: LIDOCAINE HCL 5% TRANSDERMAL PATCH TD SCH (08:56)
[2016-06-05] MEDS: BACITRACIN/POLYMYXIN B 3.5 GM OPHTHALMIC OINTMENT OS SCH ×3 (09:00→20:01)
[2016-06-05] MEDS: MORPHINE SULFATE 2 MG/ML SYRINGE IVP PRN (12:01)
[2016-06-05 16:03] VITALS: BP 95/48
[2016-06-05 16:57] LABS: GLUCOSE COMMENT 1 Received Meds; GLUCOSE,POINT OF CARE 248 MG/DL (70-110)
[2016-06-05] MEDS ORDERED: MAGNESIUM HYDROXIDE SUSPENSION 30 ML UDCUP PO PRN (17:30)
[2016-06-05] MEDS ORDERED: LACTULOSE 20 GM/30 ML SOLUTION UDCUP PO PRN (17:30)
[2016-06-05 20:00] VITALS: BP 100/43
[2016-06-05] MEDS: ATORVASTATIN CALCIUM 20 MG TABLET PO SCH (20:00)
[2016-06-05] MEDS: INSULIN DETEMIR 100 UNITS/ML SQ SCH (20:38)
[2016-06-05] MEDS: -LIDODERM PATCH NOTE- MISC SCH ×2 (22:16)
[2016-06-06 00:07] VITALS: BP 108/64
[2016-06-06] MEDS: OxyCODONE HCL/ACETAMINOPHEN 10-325 MG TABLET PO PRN ×2 (03:04→09:14)
[2016-06-06 03:20] VITALS: BP 120/47
[2016-06-06 06:42] LABS: GLUCOSE,POINT OF CARE 168 MG/DL (70-110)
[2016-06-06 06:43] LABS: GLUCOSE,POINT OF CARE 117 MG/DL (70-110)
[2016-06-06 07:40] VITALS: BP 106/43
[2016-06-06] MEDS: OXYGEN THERAPY IH SCH (08:00)
[2016-06-06 08:31] LABS: ALBUMIN 2.3 g/dL (3.4-5.0); BILIRUBIN,TOTAL 0.4 mg/dL (0.1-1.0); CALCIUM, TOTAL 9.5 mg/dL (8.8-10.5); CREATININE 3.17 mg/dL (0.60-1.30); POTASSIUM 4.1 mmol/L (3.5-5.1); TOTAL PROTEIN, SERUM 5.7 g/dL (6.4-8.2)
[2016-06-06] MEDS: VALSARTAN 80 MG TABLET PO SCH (09:00)
[2016-06-06] MEDS ORDERED: EPOETIN ALFA 10,000 UNITS/ML 2 ML VIAL SQ SCH (09:00)
[2016-06-06] MEDS: CloNIDine HCL 0.1 MG TABLET PO SCH (09:00)
[2016-06-06] MEDS: SEVELAMER CARBONATE 800 MG TABLET PO SCH ×2 (09:13→12:19)
[2016-06-06] MEDS: BACITRACIN/POLYMYXIN B 3.5 GM OPHTHALMIC OINTMENT OS SCH (09:13)
[2016-06-06] MEDS: DOCUSATE SODIUM 250 MG CAPSULE PO SCH (09:14)
[2016-06-06] MEDS: SUCRALFATE 1 GM/10 ML SUSPENSION UDCUP PO SCH ×2 (09:14→12:19)
[2016-06-06] MEDS: AmLODIPine BESYLATE 10 MG TABLET PO SCH (09:14)
[2016-06-06] MEDS: VITAMIN B COMP/VIT C/FOLIC ACID CAPSULE PO SCH (09:14)
[2016-06-06] MEDS: METOPROLOL SUCCINATE 25 MG ER TABLET PO SCH (09:15)
[2016-06-06] MEDS: GABAPENTIN 100 MG CAPSULE PO SCH (09:15)
[2016-06-06] MEDS: CARVEDILOL 6.25 MG TABLET PO SCH (09:15)
[2016-06-06] MEDS: PANTOPRAZOLE SODIUM 40 MG DR TABLET PO SCH (09:15)
[2016-06-06] MEDS: SERTRALINE HCL 50 MG TABLET PO SCH (09:16)
[2016-06-06] MEDS: LIDOCAINE HCL 5% TRANSDERMAL PATCH TD SCH (09:16)
[2016-06-06] MEDS: METOCLOPRAMIDE HCL 5 MG TABLET PO SCH (09:17)
[2016-06-06] MEDS: HEPARIN SODIUM,PORCINE 5,000 UNITS/ML VIAL SQ SCH (09:17)
[2016-06-06 11:43] VITALS: BP 98/46
[2016-06-06 12:31] LABS: GLUCOSE COMMENT 1 Received Meds; GLUCOSE,POINT OF CARE 222 MG/DL (70-110)
[2016-06-06] MEDS: ISOSORBIDE MONONITRATE 60 MG ER TABLET PO SCH (14:15)
[2016-06-06 15:55] VITALS: BP 106/42
[2016-06-07 11:58] LABS: GLUCOSE COMMENT 1 Received Meds; GLUCOSE,POINT OF CARE 166 MG/DL (70-110)
[2016-06-08] MEDS ORDERED: EPOETIN ALFA 10,000 UNITS/ML 2 ML VIAL SQ SCH (09:00)
[2016-07-03] MEDS ORDERED: ZOLP5 PO (09:14)
[2016-07-03] MEDS ORDERED: CARV6 PO (09:14)
[2016-07-03] MEDS ORDERED: LACT30L PO (09:14)
[2016-07-03] MEDS ORDERED: BISA10S PR (09:14)
[2016-07-03] MEDS ORDERED: GABA-529 PO (09:14)
[2016-07-03] MEDS ORDERED: ATOR20TA86 PO (09:14)
[2016-07-03] MEDS ORDERED: HYDR-309 PO (09:14)
[2016-07-03] MEDS ORDERED: OXYC-522 PO (09:14)
[2016-07-03] MEDS ORDERED: VALS80TA2 PO (09:14)
[2016-07-03] MEDS ORDERED: SERT50TA12 PO (09:14)
[2016-07-03] MEDS ORDERED: SUCR1TAB PO (09:14)
[2016-07-03] MEDS ORDERED: ISOS60TA4 PO (09:14)
[2016-07-03] MEDS ORDERED: LIDO700A30 TD (09:14)
[2016-07-03] MEDS ORDERED: A20IH1 IH (09:14)
[2016-07-03] MEDS ORDERED: AMLO-512 PO (09:14)
[2016-07-03] MEDS ORDERED: PANT40TA25 PO (09:14)
[2016-07-03] MEDS ORDERED: ACET-784 PO (09:14)
== END 2016-06-06 16:11 | DRG 469 ==
LOC: EMS 06:11 → 6N 11:37
PROVIDERS: ADMIT Internal Medicine; ATTEND Internal Medicine Geriatric Medicine
PROC: 5A1D60Z (ICD-10-PCS; 2016-06-04)
PROC: 0SRS0JA Replacement of Left Hip Joint, Femoral Surface with Synthetic Substitute, Uncemented, Open Approach (ICD-10-PCS; principal; 2016-06-04 08:45)
DX: S72.012A Unspecified intracapsular fracture of left femur, initial encounter for closed fracture (principal); N18.6 End stage renal disease; D62 Acute posthemorrhagic anemia; I13.2 Hypertensive heart and chronic kidney disease with heart failure and with stage 5 chronic kidney disease, or end stage renal disease; E46 Unspecified protein-calorie malnutrition; E11.22 Type 2 diabetes mellitus with diabetic chronic kidney disease; E11.319 Type 2 diabetes mellitus with unspecified diabetic retinopathy without macular edema; E11.43 Type 2 diabetes mellitus with diabetic autonomic (poly)neuropathy; K31.84 Gastroparesis; E11.21 Type 2 diabetes mellitus with diabetic nephropathy; E11.51 Type 2 diabetes mellitus with diabetic peripheral angiopathy without gangrene; I70.0 Atherosclerosis of aorta; K29.70 Gastritis, unspecified, without bleeding; E87.5 Hyperkalemia; I50.9 Heart failure, unspecified; I25.10 Atherosclerotic heart disease of native coronary artery without angina pectoris; E78.00 Pure hypercholesterolemia, unspecified; E78.5 Hyperlipidemia, unspecified; H00.14 Chalazion left upper eyelid; Z79.2 Long term (current) use of antibiotics; Z79.899 Other long term (current) drug therapy; Z79.4 Long term (current) use of insulin; Z79.82 Long term (current) use of aspirin; Z90.49 Acquired absence of other specified parts of digestive tract; Z99.2 Dependence on renal dialysis; Z98.890 Other specified postprocedural states; Z87.81 Personal history of (healed) traumatic fracture; Z87.11 Personal history of peptic ulcer disease; W07.XXXA Fall from chair, initial encounter; Y93.89 Activity, other specified; Y99.8 Other external cause status; Y92.019 Unspecified place in single-family (private) house as the place of occurrence of the external cause
CPT/HCPCS: 72170; 73503; 82108; 82306; 82962; 83735; 83970; 84100; 87081; 87086; 88300; 90935; 93005; 93306; 96365; 96375; 96376; 97110; 97116; 97161; 97530; 99285; J0131; J0690; J0696; J0885; J1170; J1644; J1885; J2270; J2274; J2405; J2704; J3010; J3370; J3490; J7030; J7040; J7050; J7060

== ENCOUNTER 2016-06-24 20:49 | Emergency (ER) | payer MEDICARE, OTHER ==
[~2016-06-24] VITALS: Ht 152.4 cm; Wt 65.9 kg
[~2016-06-24 20:49] MED LIST changes: -CARV3.1231 PO; +CARV6 PO; -METO5TAB87 PO
[2016-06-24 21:12] LABS: GLUCOSE,POINT OF CARE 136 MG/DL (70-110)
[2016-06-24 21:16] LABS: BASOPHILS % (AUTO) 0.2 % (0.0-2.0); EOSINOPHILS % (AUTO) 1.6 % (1.0-6.0); HEMATOCRIT 31.1 % (36-46); LYMPHOCYTES # (AUTO) 1.7 K/uL (1.0-4.8); LYMPHOCYTES % (AUTO) 26.5 % (22.0-44.0); MEAN CORPUSCULAR HEMOGLOBIN 30.4 pg (26.0-34.0); MEAN CORPUSCULAR HGB CONC 32.2 G/dL (31.0-37.0); MEAN CORPUSCULAR VOLUME 95 fL (80-100); MONOCYTES # (AUTO) 0.6 K/uL (0.1-1.0); MONOCYTES % (AUTO) 9.1 % (2.0-9.0); NEUTROPHILS # (AUTO) 4.1 K/uL (1.8-7.7); NEUTROPHILS % (AUTO) 62.6 % (40.0-70.0); PLATELET COUNT (AUTO) 294 K/uL (150-450); RED BLOOD CELL COUNT(AUTO) 3.29 MIL/uL (4.00-5.20); RED CELL DISTRIBUTION WIDTH 18.4 % (11.5-14.5); WHITE BLOOD COUNT (AUTO) 6.6 K/uL (4.5-11.0)
[2016-06-24 21:24] LABS: CALCIUM, TOTAL 10.4 mg/dL (8.8-10.5); CREATININE 4.02 mg/dL (0.60-1.30); POTASSIUM 3.7 mmol/L (3.5-5.1)
[2016-06-24 21:29] LABS: ALBUMIN 2.8 g/dL (3.4-5.0); BILIRUBIN,TOTAL 0.4 mg/dL (0.1-1.0)
[2016-06-24] MEDS ORDERED: ONDANSETRON HCL 4 MG/2 ML VIAL IVP ONE (21:30)
[2016-06-24] MEDS ORDERED: SODIUM CHLORIDE 0.9% 500 ML IV ONE (21:30)
[2016-06-24 21:35] LABS: PROTHROMBIN TIME 10.1 SEC (9.4-11.6)
[2016-06-24 22:25] LABS: RBC MORPHOLOGY COMMENT ABNORMAL RBC MORPH
[2016-06-25 01:00] VITALS: BP 132/85
[2016-07-03] MEDS ORDERED: ATOR20TA86 PO (09:14)
[2016-07-03] MEDS ORDERED: LIDO700A30 TD (09:14)
[2016-07-03] MEDS ORDERED: SUCR1TAB PO (09:14)
[2016-07-03] MEDS ORDERED: OXYC-522 PO (09:14)
[2016-07-03] MEDS ORDERED: PANT40TA25 PO (09:14)
[2016-07-03] MEDS ORDERED: CARV6 PO (09:14)
[2016-07-03] MEDS ORDERED: ZOLP5 PO (09:14)
[2016-07-03] MEDS ORDERED: A20IH1 IH (09:14)
[2016-07-03] MEDS ORDERED: GABA-529 PO (09:14)
[2016-07-03] MEDS ORDERED: SERT50TA12 PO (09:14)
[2016-07-03] MEDS ORDERED: BISA10S PR (09:14)
[2016-07-03] MEDS ORDERED: ACET-784 PO (09:14)
[2016-07-03] MEDS ORDERED: ISOS60TA4 PO (09:14)
[2016-07-03] MEDS ORDERED: VALS80TA2 PO (09:14)
[2016-07-03] MEDS ORDERED: HYDR-309 PO (09:14)
[2016-07-03] MEDS ORDERED: LACT30L PO (09:14)
[2016-07-03] MEDS ORDERED: AMLO-512 PO (09:14)
== END 2016-06-25 01:49 | disposition home or self-care (01) ==
LOC: EMS 20:51
DX: K59.00 Constipation, unspecified (principal); I12.0 Hypertensive chronic kidney disease with stage 5 chronic kidney disease or end stage renal disease; E11.22 Type 2 diabetes mellitus with diabetic chronic kidney disease; N18.6 End stage renal disease; E78.00 Pure hypercholesterolemia, unspecified; Z99.2 Dependence on renal dialysis; Z79.4 Long term (current) use of insulin; Z79.82 Long term (current) use of aspirin
CPT/HCPCS: 74176; 82962; 99285

== ENCOUNTER 2016-07-03 13:38 | Day surgery (SDC) | payer MEDICARE, OTHER ==
[~2016-07-03 13:38] MED LIST changes: +A20IH1 IH; +ACET-784 PO; +ATOR20TA86 PO; +BISA10S PR; +FentaNYL CITRATE-PF 100 MCG/2 ML VIAL IVP ONE; +GLUCAGON,HUMAN RECOMBINANT 1 MG VIAL IVP ONE; +HYDR-309 PO; +LACT30L PO; +LIDO700A30 TD; +LIDOCAINE HCL/PF 1% 2 ML VIAL INJ ONE; +OXYC-522 PO; +PROPOFOL 1% 20 ML VIAL IVP ONE; +SODIUM CHLORIDE 0.9% 1,000 ML IV ONE; +SUCCINYLCHOLINE CHLORIDE 20 MG/ML 10 ML VIAL IVP ONE; +SUCR1TAB PO; +ZOLP5 PO
[2016-07-03] MEDS ORDERED: SODIUM CHLORIDE 0.9% 1,000 ML IV ONE (13:45)
[2016-07-03 14:02] LABS: GLUCOSE,POINT OF CARE 140 MG/DL (70-110)
[2016-07-03] MEDS ORDERED: IOTHALAMATE MEGLUMINE 600 MG/ML 50 ML VIAL IVP ONE (15:13)
[2016-07-03] MEDS ORDERED: MEPERIDINE-PF 25 MG/ML SYRINGE IVP PRN (17:15)
[2016-07-03] MEDS ORDERED: ONDANSETRON HCL 4 MG/2 ML VIAL IVP ONE (17:15)
[2016-07-03] MEDS ORDERED: FentaNYL CITRATE-PF 100 MCG/2 ML VIAL IVP PRN (17:15)
[2016-07-03] MEDS ORDERED: HYDROmorphone 2 MG/ML SYRINGE IVP PRN (17:15)
[2016-07-03] MEDS ORDERED: FentaNYL CITRATE-PF 100 MCG/2 ML VIAL ONE (17:22)
[2016-07-03] MEDS ORDERED: ONDANSETRON HCL 4 MG/2 ML VIAL ONE (17:23)
[2016-07-03] MEDS ORDERED: AMPICILLIN SODIUM/SULBACTAM NA 1.5 GM in SODIUM CHLORIDE 0.9% 50 ML IV ONE (17:30)
[2016-07-03] MEDS ORDERED: ACETAMINOPHEN 500 MG TABLET ONE (18:55)
[2016-07-03] MEDS ORDERED: ACETAMINOPHEN 500 MG TABLET PO ONE (19:00)
[2016-07-03] MEDS ORDERED: OXYGEN THERAPY IH SCH (20:00)
== END 2016-07-03 19:20 | disposition home or self-care (01) ==
LOC: SURGERY 13:38
PROVIDERS: ATTEND Internal Medicine Gastroenterology
DX: K80.50 Calculus of bile duct without cholangitis or cholecystitis without obstruction (principal); E11.9 Type 2 diabetes mellitus without complications
CPT/HCPCS: 43264; 71010; 74328; 82962; 93005; J0295; J0330; J1610; J2405; J2704; J3010; J3490; J7030; J7050; Q9961

== ENCOUNTER → 2016-07-09 | Outpatient (CLI) | payer MEDICARE, OTHER ==
[~2016-07-09] MED LIST changes: +CINA30 PO; -FentaNYL CITRATE-PF 100 MCG/2 ML VIAL IVP ONE; -GLUCAGON,HUMAN RECOMBINANT 1 MG VIAL IVP ONE; -LIDOCAINE HCL/PF 1% 2 ML VIAL INJ ONE; -PROPOFOL 1% 20 ML VIAL IVP ONE; +SENSIPAR PO; -SODIUM CHLORIDE 0.9% 1,000 ML IV ONE; -SUCCINYLCHOLINE CHLORIDE 20 MG/ML 10 ML VIAL IVP ONE; +VALS160T2 PO
== END | disposition home or self-care (01) ==
LOC: RADPV 08:58
PROVIDERS: ATTEND Orthopaedic Surgery
DX: M25.552 Pain in left hip (principal); W19.XXXD Unspecified fall, subsequent encounter; Z96.641 Presence of right artificial hip joint
CPT/HCPCS: 73503

== ENCOUNTER → 2016-08-06 | Outpatient (CLI) | payer MEDICARE, OTHER ==
[~2016-08-06] MED LIST changes: -ASPI81 PO; -ATOR10TA84 PO; -ATOR40TA28 PO; -ERYTOO OU; -INSLAN SQ; -INSU3INS3 SQ; -METO-296 PO; -METO-323 PO; -METO-327 PO; -METO10TA3 PO; -PANT40TA PO; -SUCR1ORA5 PO
== END | disposition home or self-care (01) ==
LOC: RADPV 11:20
PROVIDERS: ATTEND Orthopaedic Surgery
DX: M17.0 Bilateral primary osteoarthritis of knee (principal); S82.092A Other fracture of left patella, initial encounter for closed fracture; M11.262 Other chondrocalcinosis, left knee; M85.88 Other specified disorders of bone density and structure, other site; I70.202 Unspecified atherosclerosis of native arteries of extremities, left leg; Z96.642 Presence of left artificial hip joint; X58.XXXA Exposure to other specified factors, initial encounter; Y93.9 Activity, unspecified; Y92.9 Unspecified place or not applicable; Y99.9 Unspecified external cause status
CPT/HCPCS: 73503

== ENCOUNTER 2016-08-08 18:13 | Emergency (ER) | payer MEDICARE, OTHER ==
[~2016-08-08] VITALS: Ht 152.4 cm; Wt 44.0 kg
[~2016-08-08 18:13] MED LIST changes: -CINA30 PO; -CLON.1 PO; -SENSIPAR PO; -SEVEC800 PO; -VALS160T2 PO
[2016-08-08] MEDS ORDERED: CLON.1 PO (18:30)
[2016-08-08 18:42] LABS: GLUCOSE,POINT OF CARE 117 MG/DL (70-110)
[2016-08-08] MEDS ORDERED: MORPHINE SULFATE 2 MG/ML SYRINGE IVP ONE (19:30)
[2016-08-08] MEDS ORDERED: SODIUM CHLORIDE 0.9% 250 ML IV ONE (19:30)
[2016-08-08] MEDS ORDERED: METOCLOPRAMIDE HCL 5 MG/ML 2 ML VIAL IVP ONE (19:30)
[2016-08-08] MEDS ORDERED: PANTOPRAZOLE SODIUM 40 MG/VIAL IVP ONE (19:30)
[2016-08-08 19:38] LABS: CALCIUM, TOTAL 10.5 mg/dL (8.8-10.5); CREATININE 4.76 mg/dL (0.60-1.30); POTASSIUM 3.7 mmol/L (3.5-5.1)
[2016-08-08 19:44] LABS: ALBUMIN 3.9 g/dL (3.4-5.0); BILIRUBIN,TOTAL 0.8 mg/dL (0.1-1.0); TOTAL PROTEIN, SERUM 7.5 g/dL (6.4-8.2)
[2016-08-08 19:50] LABS: BASOPHILS % (AUTO) 0.5 % (0.0-2.0); HEMOGLOBIN 15.2 g/dL (12.0-16.0); LYMPHOCYTES # (AUTO) 1.3 K/uL (1.0-4.8); LYMPHOCYTES % (AUTO) 33.4 % (22.0-44.0); MEAN CORPUSCULAR HEMOGLOBIN 29.6 pg (26.0-34.0); MEAN CORPUSCULAR HGB CONC 31.7 G/dL (31.0-37.0); MEAN CORPUSCULAR VOLUME 94 fL (80-100); MONOCYTES # (AUTO) 0.4 K/uL (0.1-1.0); NEUTROPHILS # (AUTO) 2.2 K/uL (1.8-7.7); NEUTROPHILS % (AUTO) 54.1 % (40.0-70.0); PLATELET COUNT (AUTO) 159 K/uL (150-450); RED BLOOD CELL COUNT(AUTO) 5.13 MIL/uL (4.00-5.20); RED CELL DISTRIBUTION WIDTH 14.5 % (11.5-14.5)
[2016-08-08 23:13] VITALS: BP 125/72
== END 2016-08-08 23:15 | disposition home or self-care (01) ==
LOC: EMS 18:14
DX: R11.2 Nausea with vomiting, unspecified (principal); R10.13 Epigastric pain; R14.0 Abdominal distension (gaseous); E11.22 Type 2 diabetes mellitus with diabetic chronic kidney disease; I12.0 Hypertensive chronic kidney disease with stage 5 chronic kidney disease or end stage renal disease; N18.6 End stage renal disease; E78.00 Pure hypercholesterolemia, unspecified; I10 Essential (primary) hypertension; Z99.2 Dependence on renal dialysis
CPT/HCPCS: 36415; 74010; 80053; 82962; 83690; 84484; 85025; 96361; 96374; 96375; 99285; C9113; J2270; J2765; J7050

== ENCOUNTER 2016-08-31 05:23 | Inpatient (IN) | payer MEDICARE, OTHER ==
[~2016-08-31] VITALS: Ht 152.4 cm; Wt 56.1 kg
[~2016-08-31 05:23] MED LIST changes: -A20IH1 IH; -ACET-784 PO; -ATOR20TA86 PO; -BISA10S PR; +CLON.1 PO; -GABA-529 PO; -HYDR-309 PO; -LACT30L PO; -LIDO700A30 TD; -ZOLP5 PO
[2016-08-31] MEDS ORDERED: SENSIPAR PO (05:41)
[2016-08-31] MEDS ORDERED: GABA-529 PO (05:41)
[2016-08-31] MEDS ORDERED: SEVEC800 PO (05:41)
[2016-08-31 05:42] LABS: GLUCOSE,POINT OF CARE 145 MG/DL (70-110)
[2016-08-31 07:07] LABS: BASOPHILS % (AUTO) 0.2 % (0.0-2.0); EOSINOPHILS % (AUTO) 1.1 % (1.0-6.0); HEMATOCRIT 41.8 % (36-46); HEMOGLOBIN 13.4 g/dL (12.0-16.0); LYMPHOCYTES # (AUTO) 1.2 K/uL (1.0-4.8); LYMPHOCYTES % (AUTO) 20.9 % (22.0-44.0); MEAN CORPUSCULAR HEMOGLOBIN 29.1 pg (26.0-34.0); MEAN CORPUSCULAR VOLUME 91 fL (80-100); MONOCYTES # (AUTO) 0.7 K/uL (0.1-1.0); MONOCYTES % (AUTO) 11.2 % (2.0-9.0); NEUTROPHILS # (AUTO) 3.9 K/uL (1.8-7.7); NEUTROPHILS % (AUTO) 66.6 % (40.0-70.0); PLATELET COUNT (AUTO) 166 K/uL (150-450); RED BLOOD CELL COUNT(AUTO) 4.59 MIL/uL (4.00-5.20); RED CELL DISTRIBUTION WIDTH 15.1 % (11.5-14.5); WHITE BLOOD COUNT (AUTO) 5.9 K/uL (4.5-11.0)
[2016-08-31 07:24] LABS: CALCIUM, TOTAL 9.2 mg/dL (8.8-10.5); CREATININE 3.58 mg/dL (0.60-1.30); POTASSIUM 3.1 mmol/L (3.5-5.1)
[2016-08-31 07:29] LABS: ALBUMIN 3.4 g/dL (3.4-5.0); BILIRUBIN,TOTAL 0.4 mg/dL (0.1-1.0); TOTAL PROTEIN, SERUM 6.5 g/dL (6.4-8.2)
[2016-08-31] MEDS ORDERED: DEXTROSE 50%-WATER 25 GM/50 ML SYRINGE IVP PRN (10:15)
[2016-08-31] MEDS ORDERED: MAGNESIUM HYDROXIDE SUSPENSION 30 ML UDCUP PO PRN (10:15)
[2016-08-31] MEDS ORDERED: ONDANSETRON HCL 4 MG/2 ML VIAL IVP PRN (10:15)
[2016-08-31] MEDS ORDERED: HEPARIN SODIUM,PORCINE 5,000 UNITS/ML VIAL SQ SCH (10:15)
[2016-08-31] MEDS ORDERED: ZOLPIDEM TARTRATE 5 MG TABLET PO PRN (10:15)
[2016-08-31 10:41] VITALS: BP 172/60
[2016-08-31] MEDS ORDERED: CINA30 PO (10:48)
[2016-08-31] MEDS ORDERED: VALS160T2 PO (10:49)
[2016-08-31] MEDS ORDERED: VANCOMYCIN HCL 1 GM/D5% WATER 200 ML IV ONE (11:00)
[2016-08-31] MEDS ORDERED: VANCOMYCIN HCL 1 GM/D5% WATER 200 ML IV PRN (11:00)
[2016-08-31] MEDS: SEVELAMER CARBONATE 800 MG TABLET PO SCH ×2 (11:31→17:38)
[2016-08-31 12:37] LABS: GLUCOSE,POINT OF CARE 125 MG/DL (70-110)
[2016-08-31 13:27] VITALS: BP 159/60
[2016-08-31] MEDS ORDERED: SODIUM CHLORIDE 0.9% 500 ML IV ONE (14:29)
[2016-08-31] MEDS: CloNIDine HCL 0.1 MG TABLET PO SCH ×2 (15:08→20:25)
[2016-08-31] MEDS: SUCRALFATE 1 GM TABLET PO SCH ×3 (15:08→20:28)
[2016-08-31] MEDS: METOCLOPRAMIDE HCL 5 MG TABLET PO SCH ×2 (15:09→20:26)
[2016-08-31] MEDS ORDERED: PANTOPRAZOLE SODIUM 40 MG DR TABLET PO ONE (15:30)
[2016-08-31] MEDS ORDERED: POTASSIUM CHLORIDE 20 MEQ ER TABLET PO ONE (15:30)
[2016-08-31 15:51] VITALS: BP 196/69
[2016-08-31 16:41] VITALS: BP 168/65
[2016-08-31] MEDS: INSULIN ASPART 100 UNITS/ML SQ PRN ×2 (17:40→20:41)
[2016-08-31 19:46] VITALS: BP 155/62
[2016-08-31 19:57] LABS: GLUCOSE COMMENT 1 Received Meds; GLUCOSE,POINT OF CARE 259 MG/DL (70-110)
[2016-08-31] MEDS: ATORVASTATIN CALCIUM 20 MG TABLET PO SCH (20:25)
[2016-08-31] MEDS: GABAPENTIN 100 MG CAPSULE PO SCH (20:26)
[2016-08-31] MEDS: DOCUSATE SODIUM 250 MG CAPSULE PO SCH (20:26)
[2016-08-31] MEDS: HEPARIN SODIUM,PORCINE 5,000 UNITS/ML VIAL SQ SCH (20:29)
[2016-08-31] MEDS: INSULIN DETEMIR 100 UNITS/ML SQ SCH (20:40)
[2016-08-31 21:11] LABS: GLUCOSE,POINT OF CARE 176 MG/DL (70-110)
[2016-08-31 23:16] VITALS: BP 154/61
[2016-09-01] VITALS (7 sets, daily range): BP systolic 138–175; BP diastolic 48–79
[2016-09-01 05:12] LABS: GLUCOSE,POINT OF CARE 133 MG/DL (70-110)
[2016-09-01] MEDS: CloNIDine HCL 0.1 MG TABLET PO SCH ×3 (05:23→21:10)
[2016-09-01 07:09] LABS: BASOPHILS % (AUTO) 0.4 % (0.0-2.0); EOSINOPHILS % (AUTO) 1.7 % (1.0-6.0); HEMOGLOBIN 14.1 g/dL (12.0-16.0); LYMPHOCYTES # (AUTO) 1.7 K/uL (1.0-4.8); LYMPHOCYTES % (AUTO) 32.2 % (22.0-44.0); MEAN CORPUSCULAR HEMOGLOBIN 28.9 pg (26.0-34.0); MEAN CORPUSCULAR HGB CONC 31.4 G/dL (31.0-37.0); MEAN CORPUSCULAR VOLUME 92 fL (80-100); MONOCYTES # (AUTO) 0.5 K/uL (0.1-1.0); MONOCYTES % (AUTO) 9.6 % (2.0-9.0); NEUTROPHILS # (AUTO) 2.9 K/uL (1.8-7.7); NEUTROPHILS % (AUTO) 56.1 % (40.0-70.0); PLATELET COUNT (AUTO) 169 K/uL (150-450); RED CELL DISTRIBUTION WIDTH 15.7 % (11.5-14.5); WHITE BLOOD COUNT (AUTO) 5.2 K/uL (4.5-11.0)
[2016-09-01 07:42] LABS: HEMOGLOBIN A1C 7.1 % (4.5-6.2)
[2016-09-01 07:51] LABS: CHOL/HDL RATIO 4.7 (3.9-5.7); CREATININE 4.83 mg/dL (0.60-1.30); MAGNESIUM 2.4 mg/dL (1.80-2.40); POTASSIUM 3.8 mmol/L (3.5-5.1); THYROID STIMULATING HORMONE 2.63 uIU/mL (0.36-3.74)
[2016-09-01] MEDS: GABAPENTIN 100 MG CAPSULE PO SCH ×2 (08:21→20:37)
[2016-09-01] MEDS: METOCLOPRAMIDE HCL 5 MG TABLET PO SCH ×3 (08:21→20:37)
[2016-09-01] MEDS: SEVELAMER CARBONATE 800 MG TABLET PO SCH ×3 (08:21→17:48)
[2016-09-01] MEDS: SUCRALFATE 1 GM TABLET PO SCH ×4 (08:21→20:37)
[2016-09-01] MEDS: AmLODIPine BESYLATE 10 MG TABLET PO SCH (08:22)
[2016-09-01] MEDS: VALSARTAN 80 MG TABLET PO SCH (08:22)
[2016-09-01] MEDS: DOCUSATE SODIUM 250 MG CAPSULE PO SCH ×2 (08:22→20:37)
[2016-09-01] MEDS: SERTRALINE HCL 50 MG TABLET PO SCH (08:23)
[2016-09-01] MEDS: PANTOPRAZOLE SODIUM 40 MG DR TABLET PO SCH (08:24)
[2016-09-01] MEDS: ISOSORBIDE MONONITRATE 60 MG ER TABLET PO SCH (08:24)
[2016-09-01] MEDS: HEPARIN SODIUM,PORCINE 5,000 UNITS/ML VIAL SQ SCH ×2 (08:24→22:29)
[2016-09-01] MEDS ORDERED: CloNIDine HCL 0.1 MG TABLET PO PRN (08:30)
[2016-09-01] MEDS ORDERED: GABAPENTIN 100 MG CAPSULE PO SCH (09:00)
[2016-09-01] MEDS: OxyCODONE HCL/ACETAMINOPHEN 10-325 MG TABLET PO PRN ×2 (09:39→20:38)
[2016-09-01 09:40] LABS: PROCALCITONIN (PCT) 0.17 ng/mL (<0.50)
[2016-09-01] MEDS: CARVEDILOL 6.25 MG TABLET PO SCH ×2 (09:41→21:10)
[2016-09-01] MEDS: INSULIN ASPART 100 UNITS/ML SQ PRN ×3 (11:42→22:28)
[2016-09-01 13:52] LABS: GLUCOSE COMMENT 1 Received Meds; GLUCOSE,POINT OF CARE 244 MG/DL (70-110)
[2016-09-01] MEDS ORDERED: SODIUM CHLORIDE 0.9% 1,000 ML IV ONE ×2 (15:20→15:21)
[2016-09-01 18:22] LABS: GLUCOSE COMMENT 1 Received Meds; GLUCOSE,POINT OF CARE 183 MG/DL (70-110)
[2016-09-01] MEDS ORDERED: MANNITOL 25%-12.5 GM/50 ML VIAL IVP PRN (18:45)
[2016-09-01] MEDS ORDERED: ALBUMIN HUMAN 25%-12.5GM/50ML IV BOTTLE IV PRN (18:45)
[2016-09-01] MEDS: ATORVASTATIN CALCIUM 20 MG TABLET PO SCH (20:37)
[2016-09-01] MEDS: INSULIN DETEMIR 100 UNITS/ML SQ SCH (21:00)
[2016-09-02 00:17] LABS: GLUCOSE COMMENT 1 Received Meds; GLUCOSE,POINT OF CARE 244 MG/DL (70-110)
[2016-09-02] MEDS: OxyCODONE HCL/ACETAMINOPHEN 10-325 MG TABLET PO PRN (04:40)
[2016-09-02 05:47] VITALS: BP 125/49
[2016-09-02] MEDS: INSULIN ASPART 100 UNITS/ML SQ PRN ×3 (06:12→20:59)
[2016-09-02 06:36] LABS: CALCIUM, TOTAL 9.2 mg/dL (8.8-10.5); CREATININE 2.96 mg/dL (0.60-1.30); POTASSIUM 3.8 mmol/L (3.5-5.1)
[2016-09-02 06:37] LABS: GLUCOSE COMMENT 1 Received Meds; GLUCOSE,POINT OF CARE 187 MG/DL (70-110)
[2016-09-02 07:16] LABS: BASOPHILS # (AUTO) 0.01 K/uL (0.00-0.20); BASOPHILS % (AUTO) 0.3 % (0.0-2.0); EOSINOPHILS % (AUTO) 2.34 % (1.0-6.0); HEMATOCRIT 39.9 % (36-46); HEMOGLOBIN 12.8 g/dL (12.0-16.0); LYMPHOCYTES # (AUTO) 1.6 K/uL (1.0-4.8); LYMPHOCYTES % (AUTO) 35.9 % (22.0-44.0); MEAN CORPUSCULAR HEMOGLOBIN 29.7 pg (26.0-34.0); MEAN CORPUSCULAR HGB CONC 32.1 G/dL (31.0-37.0); MEAN CORPUSCULAR VOLUME 93 fL (80-100); MONOCYTES # (AUTO) 0.6 K/uL (0.1-1.0); MONOCYTES % (AUTO) 13.8 % (2.0-9.0); NEUTROPHILS # (AUTO) 2.1 K/uL (1.8-7.7); NEUTROPHILS % (AUTO) 47.7 % (40.0-70.0); PLATELET COUNT (AUTO) 137 K/uL (150-450); RED CELL DISTRIBUTION WIDTH 15.2 % (11.5-14.5); WHITE BLOOD COUNT (AUTO) 4.4 K/uL (4.5-11.0)
[2016-09-02 07:20] VITALS: BP 156/51
[2016-09-02] MEDS: CloNIDine HCL 0.1 MG TABLET PO SCH ×3 (07:56→20:03)
[2016-09-02] MEDS: SEVELAMER CARBONATE 800 MG TABLET PO SCH ×3 (07:56→16:08)
[2016-09-02] MEDS: SERTRALINE HCL 50 MG TABLET PO SCH (07:56)
[2016-09-02] MEDS: HEPARIN SODIUM,PORCINE 5,000 UNITS/ML VIAL SQ SCH ×2 (07:57→20:03)
[2016-09-02] MEDS: PANTOPRAZOLE SODIUM 40 MG DR TABLET PO SCH (07:57)
[2016-09-02] MEDS: VALSARTAN 80 MG TABLET PO SCH (07:57)
[2016-09-02] MEDS: AmLODIPine BESYLATE 10 MG TABLET PO SCH (07:57)
[2016-09-02] MEDS: METOCLOPRAMIDE HCL 5 MG TABLET PO SCH ×3 (07:57→20:02)
[2016-09-02] MEDS: SUCRALFATE 1 GM TABLET PO SCH ×4 (07:57→20:02)
[2016-09-02] MEDS: GABAPENTIN 100 MG CAPSULE PO SCH ×2 (07:57→20:02)
[2016-09-02] MEDS: ISOSORBIDE MONONITRATE 60 MG ER TABLET PO SCH (07:58)
[2016-09-02] MEDS: CARVEDILOL 6.25 MG TABLET PO SCH ×2 (07:58→20:02)
[2016-09-02] MEDS: DOCUSATE SODIUM 250 MG CAPSULE PO SCH ×2 (07:58→20:02)
[2016-09-02] MEDS ORDERED: VANCOMYCIN HCL 1 GM/D5% WATER 200 ML IV ONE (08:00)
[2016-09-02 11:22] VITALS: BP 189/72
[2016-09-02 12:02] LABS: GLUCOSE COMMENT 1 Received Meds; GLUCOSE,POINT OF CARE 255 MG/DL (70-110)
[2016-09-02 15:05] VITALS: BP 135/51
[2016-09-02 17:07] LABS: GLUCOSE COMMENT 1 Received Meds; GLUCOSE,POINT OF CARE 152 MG/DL (70-110)
[2016-09-02 19:33] VITALS: BP 154/78
[2016-09-02] MEDS: ATORVASTATIN CALCIUM 20 MG TABLET PO SCH (20:02)
[2016-09-02] MEDS: INSULIN DETEMIR 100 UNITS/ML SQ SCH (20:58)
[2016-09-02 23:10] VITALS: BP 152/60
[2016-09-03 04:24] VITALS: BP 150/60
[2016-09-03 06:24] LABS: CALCIUM, TOTAL 9.7 mg/dL (8.8-10.5); CREATININE 4.01 mg/dL (0.60-1.30); POTASSIUM 3.9 mmol/L (3.5-5.1)
[2016-09-03 06:37] LABS: GLUCOSE,POINT OF CARE 95 MG/DL (70-110)
[2016-09-03 06:48] LABS: GLUCOSE COMMENT 1 Received Meds; GLUCOSE,POINT OF CARE 319 MG/DL (70-110)
[2016-09-03] MEDS: OxyCODONE HCL/ACETAMINOPHEN 10-325 MG TABLET PO PRN (07:04)
[2016-09-03 07:11] LABS: BASOPHILS % (AUTO) 0.3 % (0.0-2.0); EOSINOPHILS % (AUTO) 2.5 % (1.0-6.0); HEMATOCRIT 39.9 % (36-46); HEMOGLOBIN 12.7 g/dL (12.0-16.0); LYMPHOCYTES # (AUTO) 1.5 K/uL (1.0-4.8); LYMPHOCYTES % (AUTO) 31.9 % (22.0-44.0); MEAN CORPUSCULAR HEMOGLOBIN 29.1 pg (26.0-34.0); MEAN CORPUSCULAR HGB CONC 31.8 G/dL (31.0-37.0); MEAN CORPUSCULAR VOLUME 92 fL (80-100); MONOCYTES # (AUTO) 0.6 K/uL (0.1-1.0); MONOCYTES % (AUTO) 12.1 % (2.0-9.0); NEUTROPHILS # (AUTO) 2.4 K/uL (1.8-7.7); NEUTROPHILS % (AUTO) 53.2 % (40.0-70.0); PLATELET COUNT (AUTO) 151 K/uL (150-450); RED BLOOD CELL COUNT(AUTO) 4.36 MIL/uL (4.00-5.20); RED CELL DISTRIBUTION WIDTH 15.5 % (11.5-14.5); WHITE BLOOD COUNT (AUTO) 4.6 K/uL (4.5-11.0)
[2016-09-03 07:26] VITALS: BP 147/56
[2016-09-03] MEDS: CARVEDILOL 6.25 MG TABLET PO SCH (08:04)
[2016-09-03] MEDS: VALSARTAN 80 MG TABLET PO SCH (08:04)
[2016-09-03] MEDS: PANTOPRAZOLE SODIUM 40 MG DR TABLET PO SCH (08:05)
[2016-09-03] MEDS: AmLODIPine BESYLATE 10 MG TABLET PO SCH (08:05)
[2016-09-03] MEDS: METOCLOPRAMIDE HCL 5 MG TABLET PO SCH (08:05)
[2016-09-03] MEDS: ISOSORBIDE MONONITRATE 60 MG ER TABLET PO SCH (08:05)
[2016-09-03] MEDS: SEVELAMER CARBONATE 800 MG TABLET PO SCH ×2 (08:05→11:06)
[2016-09-03] MEDS: CloNIDine HCL 0.1 MG TABLET PO SCH (08:05)
[2016-09-03] MEDS: DOCUSATE SODIUM 250 MG CAPSULE PO SCH (08:05)
[2016-09-03] MEDS: HEPARIN SODIUM,PORCINE 5,000 UNITS/ML VIAL SQ SCH (08:05)
[2016-09-03] MEDS: SUCRALFATE 1 GM TABLET PO SCH ×2 (08:06→12:49)
[2016-09-03] MEDS: GABAPENTIN 100 MG CAPSULE PO SCH (08:06)
[2016-09-03] MEDS: SERTRALINE HCL 50 MG TABLET PO SCH (08:06)
[2016-09-03] MEDS: INSULIN ASPART 100 UNITS/ML SQ PRN (11:05)
[2016-09-03 11:08] LABS: GLUCOSE COMMENT 1 Received Meds; GLUCOSE,POINT OF CARE 142 MG/DL (70-110)
[2016-09-03 11:27] VITALS: BP 156/50
[2016-09-04 04:33] LABS: HEPATITIS Bs ANTIGEN SCREEN P Negative (Negative); HEPATITIS C AB SCREEN <0.1 s/co ratio (0.0-0.9)
== END 2016-09-03 14:05 | disposition home health service (06) | DRG 314 ==
LOC: EMS 05:25 → AHU 09:55 → 6N 12:54
PROVIDERS: ADMIT Internal Medicine Geriatric Medicine; ATTEND Internal Medicine Geriatric Medicine
PROC: 5A1D00Z (ICD-10-PCS; principal; 2016-09-01)
DX: T82.7XXA Infection and inflammatory reaction due to other cardiac and vascular devices, implants and grafts, initial encounter (principal); N18.6 End stage renal disease; L03.114 Cellulitis of left upper limb; I12.0 Hypertensive chronic kidney disease with stage 5 chronic kidney disease or end stage renal disease; I97.89 Other postprocedural complications and disorders of the circulatory system, not elsewhere classified; Z96.642 Presence of left artificial hip joint; Z99.2 Dependence on renal dialysis; E87.6 Hypokalemia; D63.1 Anemia in chronic kidney disease; E11.21 Type 2 diabetes mellitus with diabetic nephropathy; E11.22 Type 2 diabetes mellitus with diabetic chronic kidney disease; E11.319 Type 2 diabetes mellitus with unspecified diabetic retinopathy without macular edema; E78.00 Pure hypercholesterolemia, unspecified; E78.5 Hyperlipidemia, unspecified; I25.10 Atherosclerotic heart disease of native coronary artery without angina pectoris; K31.84 Gastroparesis; E11.43 Type 2 diabetes mellitus with diabetic autonomic (poly)neuropathy; K52.9 Noninfective gastroenteritis and colitis, unspecified; Y82.8 Other medical devices associated with adverse incidents; Y65.8 Other specified misadventures during surgical and medical care; Z87.11 Personal history of peptic ulcer disease; Z90.49 Acquired absence of other specified parts of digestive tract; Z98.891 History of uterine scar from previous surgery; Z87.81 Personal history of (healed) traumatic fracture; Z98.62 Peripheral vascular angioplasty status; Y92.89 Other specified places as the place of occurrence of the external cause
CPT/HCPCS: 80074; 82306; 82607; 82746; 82962; 83036; 83605; 83735; 84145; 84439; 84443; 87040; 87081; 87340; 93931; 93971; 97162; 99285; J1644; J3370; J7030; J7040

== ENCOUNTER 2016-10-04 12:18 | Emergency (ER) | payer MEDICARE, OTHER ==
[~2016-10-04] VITALS: Ht 152.4 cm; Wt 70.0 kg
[~2016-10-04 12:18] MED LIST changes: +A20IH1 IH; +ACET-784 PO; +ASPI81 PO; +ATOR10TA84 PO; +ATOR20TA86 PO; +ATOR40TA28 PO; +B CO1CAP4 PO; +BISA10S PR; +CARV3.1231 PO; +CINA30 PO; +DOCU100C19 PO; +ERYTOO OU; +GABA-529 PO; +HYDR-309 PO; +INSLAN SQ; +INSU3INS3 SQ; +LACT30L PO; +LIDO700A30 TD; +LIDOP TD; +LORA-192 PO; +METO-296 PO; +METO-323 PO; +METO-327 PO; +METO10TA3 PO; +METO5TAB87 PO; +MIRT15TA6 PO; +PANT40TA PO; +SENSIPAR PO; +SERT25TA5 PO; +SEVE0.8P PO; +SEVEC800 PO; +SIMV20TA6 PO; +SUCR1ORA5 PO; +VALS160T2 PO; +VALS40TA10 PO; +ZOLP5 PO; +[UNRECOGNIZED DRUG - CODE] PO
[2016-10-04] MEDS ORDERED: ASPIRIN 81 MG CHEWABLE TABLET PO ONE (12:30)
[2016-10-04] MEDS ORDERED: METO-296 PO (12:35)
[2016-10-04] MEDS ORDERED: CARV12 PO (12:35)
[2016-10-04 12:48] LABS: GLUCOSE,POINT OF CARE 175 MG/DL (70-110)
[2016-10-04 12:50] LABS: EOSINOPHILS % (AUTO) 1.3 % (1.0-6.0); HEMATOCRIT 37.1 % (36-46); HEMOGLOBIN 12.5 g/dL (12.0-16.0); LYMPHOCYTES # (AUTO) 1.1 K/uL (1.0-4.8); LYMPHOCYTES % (AUTO) 17.5 % (22.0-44.0); MEAN CORPUSCULAR HEMOGLOBIN 29.6 pg (26.0-34.0); MEAN CORPUSCULAR HGB CONC 33.7 G/dL (31.0-37.0); MEAN CORPUSCULAR VOLUME 88 fL (80-100); MONOCYTES # (AUTO) 0.5 K/uL (0.1-1.0); MONOCYTES % (AUTO) 8.9 % (2.0-9.0); NEUTROPHILS # (AUTO) 4.4 K/uL (1.8-7.7); NEUTROPHILS % (AUTO) 72.3 % (40.0-70.0); PLATELET COUNT (AUTO) 204 K/uL (150-450); RED BLOOD CELL COUNT(AUTO) 4.23 MIL/uL (4.00-5.20); RED CELL DISTRIBUTION WIDTH 20.8 % (11.5-14.5)
[2016-10-04 12:58] LABS: ANION GAP 8 mmol/L (8-16); CALCIUM, TOTAL 8.1 mg/dL (8.8-10.5); CARBON DIOXIDE 31 mmol/L (22-29); CHLORIDE 96 mmol/L (98-107); CREATININE 2.29 mg/dL (0.60-1.30); GLOMERULAR FILTR. RATE CALC 21 mL/min (>60); POTASSIUM 3.4 mmol/L (3.5-5.1); SODIUM SERUM 135 mmol/L (136-145); UREA NITROGEN, BLOOD 15 mg/dL (7-18)
[2016-10-04 13:04] LABS: ALANINE AMINOTRANSFERASE 14 U/L (12-78); ALBUMIN 3.4 g/dL (3.4-5.0); ASPARTATE AMINOTRANSFERASE 12 U/L (15-37); BILIRUBIN,TOTAL 0.9 mg/dL (0.1-1.0); CREATINE KINASE, TOTAL 39 U/L (26-192); TOTAL PROTEIN, SERUM 6.7 g/dL (6.4-8.2)
[2016-10-04 13:08] LABS: B-TYPE NATRIURETIC PEPTIDE 739 pg/mL (0-100)
[2016-10-04 13:14] LABS: RBC MORPHOLOGY COMMENT ABNORMAL RBC MORPH
[2016-10-04] MEDS ORDERED: CloNIDine HCL 0.1 MG TABLET PO ONE (14:00)
[2016-10-04 15:17] VITALS: BP 134/59
[2016-10-14] MEDS ORDERED: INSU3INS3 SQ (19:16)
== END 2016-10-04 15:26 | disposition home or self-care (01) ==
LOC: EMS 12:20
DX: R07.89 Other chest pain (principal); I12.0 Hypertensive chronic kidney disease with stage 5 chronic kidney disease or end stage renal disease; E11.22 Type 2 diabetes mellitus with diabetic chronic kidney disease; N18.6 End stage renal disease; E78.00 Pure hypercholesterolemia, unspecified; Z99.2 Dependence on renal dialysis
CPT/HCPCS: 82962; 93005; 99285

== ENCOUNTER → 2016-11-09 | Outpatient (CLI) | payer MEDICARE, OTHER ==
[~2016-11-09] MED LIST changes: -A20IH1 IH; -ACET-784 PO; -ATOR10TA84 PO; -ATOR20TA86 PO; -ATOR40TA28 PO; -B CO1CAP4 PO; -BISA10S PR; +CARB1TAB41 PO; -CARV3.1231 PO; -CARV6 PO; -DOCU100C19 PO; -ERYTOO OU; -HYDR-309 PO; -INSLAN SQ; -LACT30L PO; -LIDO700A30 TD; -LIDOP TD; -LORA-192 PO; -METO-323 PO; -METO-327 PO; -METO10TA3 PO; -METO5TAB87 PO; -MIRT15TA6 PO; -PANT40TA PO; -SENSIPAR PO; -SERT25TA5 PO; -SEVE0.8P PO; -SIMV20TA6 PO; -SUCR1ORA5 PO; +TICA90TA PO; -VALS40TA10 PO; -VALS80TA2 PO; -ZOLP5 PO; -[UNRECOGNIZED DRUG - CODE] PO
== END | disposition home or self-care (01) ==
LOC: RADPV 09:03
PROVIDERS: ATTEND Orthopaedic Surgery
DX: M17.0 Bilateral primary osteoarthritis of knee (principal); M11.262 Other chondrocalcinosis, left knee; M11.261 Other chondrocalcinosis, right knee; I70.203 Unspecified atherosclerosis of native arteries of extremities, bilateral legs; Z96.642 Presence of left artificial hip joint
CPT/HCPCS: 73503

== ENCOUNTER → 2016-11-28 | Outpatient (CLI) | payer MEDICARE, OTHER | END | disposition home or self-care (01) | LOC: RADPV 08:51 | PROVIDERS: ATTEND Legal Medicine | DX: M81.0 Age-related osteoporosis without current pathological fracture (principal) | CPT/HCPCS: 77080 ==

== ENCOUNTER 2017-02-27 13:24 | Emergency (ER) | payer MEDICARE, OTHER ==
[~2017-02-27] VITALS: Ht 149.9 cm; Wt 52.0 kg
[~2017-02-27 13:24] MED LIST changes: +CLON-570 PO; -CLON.1 PO
[2017-02-27] MEDS ORDERED: OMEP20 PO (13:39)
[2017-02-27] MEDS ORDERED: APIX2.5T PO (13:39)
[2017-02-27] MEDS ORDERED: TICA90TA PO (13:39)
[2017-02-27] MEDS ORDERED: CINA30 PO (13:39)
[2017-02-27] MEDS ORDERED: CARV25 PO (13:39)
[2017-02-27] MEDS ORDERED: ATOR20TA86 PO (13:39)
[2017-02-27] MEDS ORDERED: TRAZ-144 PO (13:39)
[2017-02-27] MEDS ORDERED: SODIUM CHLORIDE 0.9% 1,000 ML IV ONE (13:58)
[2017-02-27] MEDS ORDERED: DONNATAL/LIDOCAINE/MAALOX 55 ML BOTTLE PO ONE (14:00)
[2017-02-27] MEDS ORDERED: ONDANSETRON HCL 4 MG/2 ML VIAL IVP ONE (14:00)
[2017-02-27] MEDS ORDERED: PANTOPRAZOLE SODIUM 40 MG/VIAL IVP ONE (14:00)
[2017-02-27 14:36] LABS: BASOPHILS # (AUTO) 0.02 K/uL (0.00-0.20); BASOPHILS % (AUTO) 0.4 % (0.0-2.0); EOSINOPHILS # (AUTO) 0.03 K/uL (0.00-0.70); EOSINOPHILS % (AUTO) 0.46 % (1.0-6.0); HEMATOCRIT 36.8 % (36-46); LYMPHOCYTES # (AUTO) 1.6 K/uL (1.0-4.8); LYMPHOCYTES % (AUTO) 28.6 % (22.0-44.0); MEAN CORPUSCULAR HGB CONC 32.6 G/dL (31.0-37.0); MEAN CORPUSCULAR VOLUME 95 fL (80-100); MONOCYTES # (AUTO) 0.4 K/uL (0.1-1.0); MONOCYTES % (AUTO) 7.8 % (2.0-9.0); NEUTROPHILS # (AUTO) 3.4 K/uL (1.8-7.7); NEUTROPHILS % (AUTO) 62.8 % (40.0-70.0); PLATELET COUNT (AUTO) 198 K/uL (150-450); RED BLOOD CELL COUNT(AUTO) 3.87 MIL/uL (4.00-5.20); RED CELL DISTRIBUTION WIDTH 18.4 % (11.5-14.5); WHITE BLOOD COUNT (AUTO) 5.5 K/uL (4.5-11.0)
[2017-02-27 14:42] LABS: CREATININE 4.02 mg/dL (0.60-1.30)
[2017-02-27 14:48] LABS: ALBUMIN 3.6 g/dL (3.4-5.0); BILIRUBIN,TOTAL 0.9 mg/dL (0.1-1.0)
[2017-02-27 15:43] LABS: RBC MORPHOLOGY COMMENT NORMAL RBC MORPH
[2017-02-27 16:54] LABS: APPEARANCE,URINE CLOUDY (CLEAR); GLUCOSE, URINE (UA) 100 mg/dL (NEGATIVE); KETONES,URINE NEGATIVE (NEGATIVE); LEUKOCYTE ESTERASE ,URINE SMALL (NEGATIVE); OCCULT BLOOD,URINE NEGATIVE (NEGATIVE); PROTEIN,URINE SEE CONFIRM (NEGATIVE)
[2017-02-27 16:57] LABS: ADD UA MICROSCOPIC YES
[2017-02-27 17:02] LABS: SQUAMOUS EPITHELIAL CELL,UR Moderate /LPF (None Seen); SULFOSALICYLIC ACID,URINE 3+ (Negative)
[2017-02-27 17:10] VITALS: BP 102/76
== END 2017-02-27 18:07 | disposition home or self-care (01) ==
LOC: EMS 13:25
DX: K29.70 Gastritis, unspecified, without bleeding (principal); I12.0 Hypertensive chronic kidney disease with stage 5 chronic kidney disease or end stage renal disease; E11.22 Type 2 diabetes mellitus with diabetic chronic kidney disease; N18.6 End stage renal disease; I25.10 Atherosclerotic heart disease of native coronary artery without angina pectoris; E78.00 Pure hypercholesterolemia, unspecified; Z99.2 Dependence on renal dialysis
CPT/HCPCS: 36415; 80053; 81001; 83690; 84484; 85025; 87077; 87086; 87186; 93005; 96361; 96374; 96375; 99285; C9113; J2405

== ENCOUNTER 2017-05-07 13:47 | Emergency (ER) | payer MEDICARE, OTHER ==
[~2017-05-07] VITALS: Ht 152.4 cm; Wt 50.0 kg
[~2017-05-07 13:47] MED LIST changes: +APIX2.5T PO; -ASPI81 PO; +ATOR20TA86 PO; +CARV25 PO; -CLON-570 PO; -INSU3INS3 SQ; -METO-296 PO; +OMEP20 PO; -OXYC-522 PO; -SEVEC800 PO; -SUCR1TAB PO; +TRAZ-144 PO
[2017-05-07 14:27] LABS: GLUCOSE,POINT OF CARE 252 MG/DL (70-110)
[2017-05-07 14:33] LABS: BASOPHILS % (AUTO) 0.3 % (0.0-2.0); EOSINOPHILS % (AUTO) 0.7 % (1.0-6.0); HEMATOCRIT 36.2 % (36-46); HEMOGLOBIN 12.4 g/dL (12.0-16.0); LYMPHOCYTES # (AUTO) 1.1 K/uL (1.0-4.8); LYMPHOCYTES % (AUTO) 22.4 % (22.0-44.0); MEAN CORPUSCULAR HEMOGLOBIN 30.6 pg (26.0-34.0); MEAN CORPUSCULAR HGB CONC 34.2 G/dL (31.0-37.0); MEAN CORPUSCULAR VOLUME 90 fL (80-100); MONOCYTES # (AUTO) 0.5 K/uL (0.1-1.0); MONOCYTES % (AUTO) 9.5 % (2.0-9.0); NEUTROPHILS # (AUTO) 3.2 K/uL (1.8-7.7); NEUTROPHILS % (AUTO) 67.1 % (40.0-70.0); PLATELET COUNT (AUTO) 176 K/uL (150-450); RED BLOOD CELL COUNT(AUTO) 4.04 MIL/uL (4.00-5.20); RED CELL DISTRIBUTION WIDTH 14.8 % (11.5-14.5)
[2017-05-07 14:44] LABS: PROTHROMBIN TIME 10.7 SEC (9.4-11.6)
[2017-05-07 14:47] LABS: CALCIUM, TOTAL 9.6 mg/dL (8.8-10.5); CREATININE 3.19 mg/dL (0.60-1.30); POTASSIUM 3.9 mmol/L (3.5-5.1)
[2017-05-07 14:52] LABS: APPEARANCE,URINE CLEAR (CLEAR); GLUCOSE, URINE (UA) >=1000 mg/dL (NEGATIVE); KETONES,URINE 40 mg/dL (NEGATIVE); LEUKOCYTE ESTERASE ,URINE NEGATIVE (NEGATIVE); NITRATE,URINE NEGATIVE (NEGATIVE); OCCULT BLOOD,URINE NEGATIVE (NEGATIVE); PROTEIN,URINE SEE CONFIRM (NEGATIVE)
[2017-05-07 14:53] LABS: ALBUMIN 3.9 g/dL (3.4-5.0); BILIRUBIN,TOTAL 0.9 mg/dL (0.1-1.0); TOTAL PROTEIN, SERUM 8.1 g/dL (6.4-8.2)
[2017-05-07] MEDS ORDERED: DONNATAL/LIDOCAINE/MAALOX 55 ML BOTTLE PO ONE (15:15)
[2017-05-07] MEDS ORDERED: PANTOPRAZOLE SODIUM 40 MG/VIAL IVP ONE (15:15)
[2017-05-07 15:18] LABS: BILIRUBIN,URINE PRELIM. POSITIVE (NEGATIVE)
[2017-05-07 15:19] LABS: BACTERIA,URINE None Seen /HPF (None Seen); RBC,URINE None Seen /HPF (0-2); SQUAMOUS EPITHELIAL CELL,UR Rare /LPF (None Seen); SULFOSALICYLIC ACID,URINE 1+ (Negative); WBC,URINE None Seen /HPF (0-5)
[2017-05-07 17:14] VITALS: BP 179/67
== END 2017-05-07 17:19 | disposition home or self-care (01) ==
LOC: EMS 13:49
DX: K29.70 Gastritis, unspecified, without bleeding (principal); E11.9 Type 2 diabetes mellitus without complications; I11.9 Hypertensive heart disease without heart failure; E78.00 Pure hypercholesterolemia, unspecified; I25.10 Atherosclerotic heart disease of native coronary artery without angina pectoris
CPT/HCPCS: 36415; 80053; 81001; 82962; 83690; 84484; 85025; 85610; 85730; 93005; 96374; 99285; C9113

== ENCOUNTER 2017-07-09 10:34 | Emergency (ER) | payer MEDICARE, OTHER ==
[~2017-07-09] VITALS: Ht 152.4 cm; Wt 53.0 kg
[2017-07-09 10:53] LABS: GLUCOSE,POINT OF CARE 178 MG/DL (70-110)
[2017-07-09] MEDS ORDERED: PHOSLOC PO (10:55)
[2017-07-09] MEDS ORDERED: SERT50TA12 PO (10:55)
[2017-07-09] MEDS ORDERED: FOLI1TAB85 PO (10:55)
[2017-07-09] MEDS ORDERED: OLOP2.5D OU (10:55)
[2017-07-09] MEDS ORDERED: CARV25 PO (10:55)
[2017-07-09] MEDS ORDERED: BIMA12.5OS OU (10:55)
[2017-07-09] MEDS ORDERED: IBUPROFEN 600 MG TABLET PO ONE (12:30)
[2017-07-09] MEDS ORDERED: OxyCODONE HCL/ACETAMINOPHEN 5-325 MG TABLET PO ONE (13:15)
[2017-07-09] MEDS ORDERED: CloNIDine HCL 0.1 MG TABLET PO ONE (13:15)
[2017-07-09 14:08] LABS: BASOPHILS % (AUTO) 0.3 % (0.0-2.0); EOSINOPHILS % (AUTO) 0.9 % (1.0-6.0); HEMATOCRIT 41.1 % (36-46); HEMOGLOBIN 13.8 g/dL (12.0-16.0); LYMPHOCYTES # (AUTO) 1.3 K/uL (1.0-4.8); LYMPHOCYTES % (AUTO) 25.7 % (22.0-44.0); MEAN CORPUSCULAR HEMOGLOBIN 31.5 pg (26.0-34.0); MEAN CORPUSCULAR HGB CONC 33.5 G/dL (31.0-37.0); MEAN CORPUSCULAR VOLUME 94 fL (80-100); MONOCYTES # (AUTO) 0.4 K/uL (0.1-1.0); MONOCYTES % (AUTO) 8.4 % (2.0-9.0); NEUTROPHILS # (AUTO) 3.4 K/uL (1.8-7.7); NEUTROPHILS % (AUTO) 64.7 % (40.0-70.0); PLATELET COUNT (AUTO) 187 K/uL (150-450); RED BLOOD CELL COUNT(AUTO) 4.37 MIL/uL (4.00-5.20)
[2017-07-09 14:18] LABS: CALCIUM, TOTAL 9.5 mg/dL (8.8-10.5); CREATININE 3.77 mg/dL (0.60-1.30); POTASSIUM 4.8 mmol/L (3.5-5.1)
[2017-07-09 14:23] LABS: ALBUMIN 3.5 g/dL (3.4-5.0); BILIRUBIN,TOTAL 0.6 mg/dL (0.1-1.0); TOTAL PROTEIN, SERUM 6.8 g/dL (6.4-8.2)
[2017-07-09 16:07] VITALS: BP 207/70
== END 2017-07-09 16:24 | disposition home or self-care (01) ==
LOC: EMS 10:35
DX: I82.402 Acute embolism and thrombosis of unspecified deep veins of left lower extremity (principal); I87.2 Venous insufficiency (chronic) (peripheral); M51.36 Other intervertebral disc degeneration, lumbar region; M48.061 Spinal stenosis, lumbar region without neurogenic claudication; I13.11 Hypertensive heart and chronic kidney disease without heart failure, with stage 5 chronic kidney disease, or end stage renal disease; E11.22 Type 2 diabetes mellitus with diabetic chronic kidney disease; N18.6 End stage renal disease; I25.10 Atherosclerotic heart disease of native coronary artery without angina pectoris; E78.00 Pure hypercholesterolemia, unspecified; Z99.2 Dependence on renal dialysis
CPT/HCPCS: 72131; 82962; 93970; 99285

== ENCOUNTER 2019-02-18 13:29 | Emergency (ER) | payer MEDICARE, OTHER ==
[~2019-02-18] VITALS: Ht 154.9 cm; Wt 60.2 kg
[~2019-02-18 13:29] MED LIST changes: -AMLO-512 PO; +AMLO10TA7 PO; +BIMA12.5OS OU; -CINA30 PO; +FOLI1TAB85 PO; -GABA-529 PO; +OLOP2.5D OU; -OMEP20 PO; +PHOSLOC PO; -TICA90TA PO; -TRAZ-144 PO
[2019-02-18 14:21] LABS: EOSINOPHILS % (AUTO) 2.1 % (1.0-6.0); HEMATOCRIT 40.4 % (36-46); LYMPHOCYTES # (AUTO) 1.1 K/uL (1.0-4.8); LYMPHOCYTES % (AUTO) 20.9 % (22.0-44.0); MEAN CORPUSCULAR HEMOGLOBIN 30.6 pg (26.0-34.0); MEAN CORPUSCULAR HGB CONC 32.2 G/dL (31.0-37.0); MEAN CORPUSCULAR VOLUME 95 fL (80-100); MONOCYTES # (AUTO) 0.5 K/uL (0.1-1.0); NEUTROPHILS # (AUTO) 3.5 K/uL (1.8-7.7); PLATELET COUNT (AUTO) 253 K/uL (150-450); RED BLOOD CELL COUNT(AUTO) 4.25 MIL/uL (4.00-5.20); RED CELL DISTRIBUTION WIDTH 17.6 % (11.5-14.5)
[2019-02-18 14:22] LABS: ALBUMIN 3.4 g/dL (3.4-5.0); BILIRUBIN,TOTAL 0.4 mg/dL (0.1-1.0); CALCIUM, TOTAL 10.7 mg/dL (8.8-10.5); CREATININE 5.36 mg/dL (0.60-1.30); POTASSIUM 5.5 mmol/L (3.5-5.1); TOTAL PROTEIN, SERUM 7.3 g/dL (6.4-8.2)
[2019-02-18 14:37] LABS: INR 1.1 (0.9-1.1); PROTHROMBIN TIME 10.7 SEC (9.4-11.6)
[2019-02-18] MEDS ORDERED: PB/HYOSCY/ATR/SCOP/LIDO/MAALOX 55 ML BOTTLE PO ONE (15:45)
[2019-02-18] MEDS ORDERED: ONDANSETRON HCL 4 MG TABLET PO ONE (15:45)
[2019-02-18] MEDS ORDERED: LORazepam 1 MG TABLET PO ONE (15:45)
[2019-02-18 16:06] LABS: APPEARANCE,URINE CLOUDY (CLEAR); BILIRUBIN,URINE NEGATIVE (NEGATIVE); GLUCOSE, URINE (UA) 100 mg/dL (NEGATIVE); KETONES,URINE NEGATIVE (NEGATIVE); LEUKOCYTE ESTERASE ,URINE NEGATIVE (NEGATIVE); NITRATE,URINE NEGATIVE (NEGATIVE); OCCULT BLOOD,URINE TRACE (NEGATIVE); PROTEIN,URINE SEE CONFIRM (NEGATIVE); UROBILINOGEN,URINE 0.2 mg/dL (<=1.0)
[2019-02-18 16:12] LABS: SULFOSALICYLIC ACID,URINE 4+ (Negative)
[2019-02-18 16:13] LABS: BACTERIA,URINE Moderate /HPF (None Seen); RBC,URINE 0-2 /HPF (0-2); SQUAMOUS EPITHELIAL CELL,UR Many /LPF (None Seen)
[2019-02-18 20:21] VITALS: BP 171/62
== END 2019-02-18 21:00 | disposition home or self-care (01) ==
LOC: EMS 13:33
DX: R10.13 Epigastric pain (principal); F41.9 Anxiety disorder, unspecified; F43.9 Reaction to severe stress, unspecified; R11.2 Nausea with vomiting, unspecified; I13.11 Hypertensive heart and chronic kidney disease without heart failure, with stage 5 chronic kidney disease, or end stage renal disease; E11.22 Type 2 diabetes mellitus with diabetic chronic kidney disease; N18.6 End stage renal disease; E78.00 Pure hypercholesterolemia, unspecified; I25.10 Atherosclerotic heart disease of native coronary artery without angina pectoris; Z99.2 Dependence on renal dialysis; Z90.49 Acquired absence of other specified parts of digestive tract
CPT/HCPCS: 36415; 74022; 80053; 81001; 82962; 83690; 84484; 85025; 85610; 87086; 93005; 99285; Q0162

== ENCOUNTER 2019-02-19 06:26 | Emergency (ER) | payer MEDICARE, OTHER ==
[~2019-02-19] VITALS: Ht 162.6 cm; Wt 56.4 kg
[2019-02-19 09:00] VITALS: BP 223/98
== END 2019-02-19 09:12 | disposition home or self-care (01) ==
LOC: EMS 06:26
DX: S09.90XA Unspecified injury of head, initial encounter (principal); I25.10 Atherosclerotic heart disease of native coronary artery without angina pectoris; E11.9 Type 2 diabetes mellitus without complications; I11.9 Hypertensive heart disease without heart failure; E78.00 Pure hypercholesterolemia, unspecified; Z90.89 Acquired absence of other organs; W18.09XA Striking against other object with subsequent fall, initial encounter; Y93.89 Activity, other specified; Y92.89 Other specified places as the place of occurrence of the external cause; Y99.8 Other external cause status
CPT/HCPCS: 70450; 72125

== ENCOUNTER 2019-02-23 22:05 | Inpatient (IN) | payer MEDICARE, OTHER ==
[~2019-02-23] VITALS: Ht 144.8 cm; Wt 53.2 kg
[2019-02-23 22:36] LABS: GLUCOSE,POINT OF CARE 176 MG/DL (70-110)
[2019-02-23 22:44] LABS: BASOPHILS % (AUTO) 0.5 % (0.0-2.0); EOSINOPHILS % (AUTO) 1.2 % (1.0-6.0); HEMATOCRIT 33.7 % (36-46); HEMOGLOBIN 11.2 g/dL (12.0-16.0); LYMPHOCYTES % (AUTO) 18.2 % (22.0-44.0); MEAN CORPUSCULAR HEMOGLOBIN 31.4 pg (26.0-34.0); MEAN CORPUSCULAR HGB CONC 33.2 G/dL (31.0-37.0); MEAN CORPUSCULAR VOLUME 95 fL (80-100); MONOCYTES # (AUTO) 0.7 K/uL (0.1-1.0); MONOCYTES % (AUTO) 13.2 % (2.0-9.0); NEUTROPHILS # (AUTO) 3.7 K/uL (1.8-7.7); NEUTROPHILS % (AUTO) 66.9 % (40.0-70.0); PLATELET COUNT (AUTO) 234 K/uL (150-450); RED BLOOD CELL COUNT(AUTO) 3.56 MIL/uL (4.00-5.20); RED CELL DISTRIBUTION WIDTH 16.2 % (11.5-14.5)
[2019-02-23 22:55] LABS: CREATININE 3.74 mg/dL (0.60-1.30); POTASSIUM 4.5 mmol/L (3.5-5.1)
[2019-02-23 22:57] LABS: INR 1.1 (0.9-1.1); PROTHROMBIN TIME 10.8 SEC (9.4-11.6)
[2019-02-23 23:01] LABS: LACTIC ACID 0.7 mmol/L (0.4-2.0); TROPONIN I 0.06 ng/mL (0.00-0.05)
[2019-02-23 23:03] LABS: ALBUMIN 3.1 g/dL (3.4-5.0); BILIRUBIN,TOTAL 0.5 mg/dL (0.1-1.0); TOTAL PROTEIN, SERUM 6.7 g/dL (6.4-8.2)
[2019-02-24] MEDS ORDERED: 0.9% SODIUM CHLORIDE 10 ML SYRINGE IVP PRN ×2 (00:30→03:30)
[2019-02-24] MEDS ORDERED: ONDANSETRON HCL 4 MG/2 ML VIAL IVP PRN ×2 (00:30→03:30)
[2019-02-24] MEDS ORDERED: ACETAMINOPHEN 325 MG TABLET PO PRN (00:30)
[2019-02-24] MEDS ORDERED: OxyCODONE HCL/ACETAMINOPHEN 5-325 MG TABLET PO PRN ×2 (03:30)
[2019-02-24 04:01] VITALS: BP 189/75
[2019-02-24] MEDS ORDERED: INFLUENZA VIRUS VACCINE QVS 2019-20 (3YR+)/PF 60 MCG/0.5 ML SYRINGE IM ONE (04:45)
[2019-02-24 06:30] VITALS: BP 180/88
[2019-02-24] MEDS: CARVEDILOL 25 MG TABLET PO SCH ×2 (06:39→20:53)
[2019-02-24 07:39] VITALS: BP 166/127
[2019-02-24] MEDS ORDERED: DOCUSATE SODIUM 100 MG CAPSULE PO SCH (09:00)
[2019-02-24] MEDS: APIXABAN 2.5 MG TABLET PO SCH ×2 (09:35→20:53)
[2019-02-24] MEDS: ATORVASTATIN CALCIUM 20 MG TABLET PO SCH (09:35)
[2019-02-24] MEDS: AmLODIPine BESYLATE 10 MG TABLET PO SCH (09:35)
[2019-02-24] MEDS: ISOSORBIDE MONONITRATE 60 MG ER TABLET PO SCH (09:35)
[2019-02-24] MEDS: CARBIDOPA/LEVODOPA 25-100 MG ER TABLET PO SCH ×3 (09:37→20:54)
[2019-02-24 09:47] LABS: GLUCOMETER DEV NAME(LOC) 6N.2; GLUCOSE,POINT OF CARE 151 MG/DL (70-110)
[2019-02-24] MEDS ORDERED: LACTULOSE 20 GM/30 ML SOLUTION UDCUP PO ONE (11:30)
[2019-02-24 11:39] VITALS: BP 177/81
[2019-02-24] MEDS ORDERED: HydrALAZINE HCL 20 MG/ML VIAL IVP PRN (11:45)
[2019-02-24] MEDS ORDERED: DEXTROSE 50%-WATER 25 GM/50 ML SYRINGE IVP PRN (13:00)
[2019-02-24 14:03] LABS: GLUCOMETER DEV NAME(LOC) 6N.2; GLUCOSE,POINT OF CARE 160 MG/DL (70-110)
[2019-02-24] MEDS: INSULIN LISPRO 100 UNITS/ML SQ PRN ×2 (14:24→21:04)
[2019-02-24 15:18] VITALS: BP 126/58
[2019-02-24 17:49] LABS: GLUCOMETER DEV NAME(LOC) 4E.2; GLUCOSE,POINT OF CARE 113 MG/DL (70-110)
[2019-02-24 20:00] VITALS: BP 152/71
[2019-02-24] MEDS: DOCUSATE SODIUM 100 MG CAPSULE PO PRN (20:54)
[2019-02-24 22:25] LABS: GLUCOMETER DEV NAME(LOC) 6N.2; GLUCOSE,POINT OF CARE 145 MG/DL (70-110)
[2019-02-25] VITALS (7 sets, daily range): BP systolic 129–182; BP diastolic 54–71
[2019-02-25] MEDS: BISACODYL 10 MG RECTAL RECTAL SUPPOSITORY PR PRN (00:17)
[2019-02-25 06:19] LABS: GLUCOMETER DEV NAME(LOC) 4E.2; GLUCOSE,POINT OF CARE 121 MG/DL (70-110)
[2019-02-25 06:38] LABS: BASOPHILS % (AUTO) 0.3 % (0.0-2.0); EOSINOPHILS % (AUTO) 0.4 % (1.0-6.0); HEMATOCRIT 35.2 % (36-46); HEMOGLOBIN 11.4 g/dL (12.0-16.0); LYMPHOCYTES # (AUTO) 1.3 K/uL (1.0-4.8); LYMPHOCYTES % (AUTO) 13.6 % (22.0-44.0); MEAN CORPUSCULAR HEMOGLOBIN 30.7 pg (26.0-34.0); MEAN CORPUSCULAR HGB CONC 32.5 G/dL (31.0-37.0); MEAN CORPUSCULAR VOLUME 95 fL (80-100); MONOCYTES # (AUTO) 0.9 K/uL (0.1-1.0); MONOCYTES % (AUTO) 10.2 % (2.0-9.0); NEUTROPHILS % (AUTO) 75.5 % (40.0-70.0); PLATELET COUNT (AUTO) 248 K/uL (150-450); RED BLOOD CELL COUNT(AUTO) 3.73 MIL/uL (4.00-5.20); RED CELL DISTRIBUTION WIDTH 16.6 % (11.5-14.5)
[2019-02-25 06:48] LABS: HEMOGLOBIN A1C 4.8 % (4.5-6.2)
[2019-02-25 07:00] LABS: ALBUMIN 2.9 g/dL (3.4-5.0); BILIRUBIN,TOTAL 0.6 mg/dL (0.1-1.0); CALCIUM, TOTAL 10.9 mg/dL (8.8-10.5); CREATININE 5.81 mg/dL (0.60-1.30); FREE T4 (FREE THYROXINE) 1.02 ng/dL (0.76-1.46); POTASSIUM 4.6 mmol/L (3.5-5.1); THYROID STIMULATING HORMONE 1.68 uIU/mL (0.36-3.74); TOTAL PROTEIN, SERUM 6.1 g/dL (6.4-8.2)
[2019-02-25] MEDS ORDERED: SODIUM CHLORIDE 0.9% 2,000 ML ONE (08:04)
[2019-02-25] MEDS: APIXABAN 2.5 MG TABLET PO SCH ×2 (09:00→19:59)
[2019-02-25] MEDS: CARBIDOPA/LEVODOPA 25-100 MG ER TABLET PO SCH ×3 (09:00→19:58)
[2019-02-25] MEDS: ATORVASTATIN CALCIUM 20 MG TABLET PO SCH (16:46)
[2019-02-25] MEDS: PANTOPRAZOLE SODIUM 40 MG DR TABLET PO SCH (16:46)
[2019-02-25] MEDS: ISOSORBIDE MONONITRATE 60 MG ER TABLET PO SCH (16:46)
[2019-02-25] MEDS: CARVEDILOL 25 MG TABLET PO SCH ×2 (16:46→19:59)
[2019-02-25] MEDS: AmLODIPine BESYLATE 10 MG TABLET PO SCH (16:50)
[2019-02-25] MEDS: INSULIN LISPRO 100 UNITS/ML SQ PRN (17:26)
[2019-02-25 18:35] LABS: GLUCOMETER DEV NAME(LOC) 4E.2; GLUCOSE,POINT OF CARE 189 MG/DL (70-110)
[2019-02-25 18:35] LABS: GLUCOMETER DEV NAME(LOC) 4E.2; GLUCOSE,POINT OF CARE 124 MG/DL (70-110)
[2019-02-25 20:32] LABS: GLUCOMETER DEV NAME(LOC) 4E.2; GLUCOSE,POINT OF CARE 124 MG/DL (70-110)
[2019-02-26 05:19] VITALS: BP 133/76
[2019-02-26] MEDS: ACETAMINOPHEN 325 MG TABLET PO PRN ×3 (05:36→23:23)
[2019-02-26] MEDS: INSULIN LISPRO 100 UNITS/ML SQ PRN ×4 (05:45→21:09)
[2019-02-26 06:36] LABS: GLUCOMETER DEV NAME(LOC) 6N.2; GLUCOSE,POINT OF CARE 187 MG/DL (70-110)
[2019-02-26 07:53] VITALS: BP 133/71
[2019-02-26] MEDS: DOCUSATE SODIUM 100 MG CAPSULE PO PRN ×2 (08:32→20:58)
[2019-02-26] MEDS: AmLODIPine BESYLATE 10 MG TABLET PO SCH (08:32)
[2019-02-26] MEDS: ATORVASTATIN CALCIUM 20 MG TABLET PO SCH (08:32)
[2019-02-26] MEDS: CARVEDILOL 25 MG TABLET PO SCH ×2 (08:33→20:57)
[2019-02-26] MEDS: ISOSORBIDE MONONITRATE 60 MG ER TABLET PO SCH (08:33)
[2019-02-26] MEDS: APIXABAN 2.5 MG TABLET PO SCH ×2 (08:33→20:57)
[2019-02-26] MEDS: PANTOPRAZOLE SODIUM 40 MG DR TABLET PO SCH (08:33)
[2019-02-26] MEDS: CARBIDOPA/LEVODOPA 25-100 MG ER TABLET PO SCH ×2 (08:33→15:54)
[2019-02-26 11:15] VITALS: BP 120/63
[2019-02-26 15:27] VITALS: BP 138/63
[2019-02-26 17:42] LABS: GLUCOMETER DEV NAME(LOC) 4E.2; GLUCOSE,POINT OF CARE 197 MG/DL (70-110)
[2019-02-26 17:42] LABS: GLUCOMETER DEV NAME(LOC) 4E.2; GLUCOSE,POINT OF CARE 185 MG/DL (70-110)
[2019-02-26 20:21] VITALS: BP 123/68
[2019-02-26 21:31] LABS: GLUCOMETER DEV NAME(LOC) 4E.2; GLUCOSE,POINT OF CARE 181 MG/DL (70-110)
[2019-02-26 23:24] VITALS: BP 159/66
[2019-02-27 04:20] VITALS: BP 153/66
[2019-02-27] MEDS: INSULIN LISPRO 100 UNITS/ML SQ PRN ×3 (07:02→16:55)
[2019-02-27] MEDS: BISACODYL 10 MG RECTAL RECTAL SUPPOSITORY PR PRN (07:02)
[2019-02-27 07:25] LABS: GLUCOMETER DEV NAME(LOC) 4E.2; GLUCOSE,POINT OF CARE 152 MG/DL (70-110)
[2019-02-27 08:14] VITALS: BP 174/73
[2019-02-27] MEDS ORDERED: SODIUM CHLORIDE 0.9% 2,000 ML ONE (09:11)
[2019-02-27] MEDS: PANTOPRAZOLE SODIUM 40 MG DR TABLET PO SCH (09:12)
[2019-02-27] MEDS: ISOSORBIDE MONONITRATE 60 MG ER TABLET PO SCH (09:12)
[2019-02-27] MEDS: CARVEDILOL 25 MG TABLET PO SCH (09:13)
[2019-02-27] MEDS: CARBIDOPA/LEVODOPA 25-100 MG ER TABLET PO SCH (09:13)
[2019-02-27] MEDS: ATORVASTATIN CALCIUM 20 MG TABLET PO SCH (09:13)
[2019-02-27] MEDS: AmLODIPine BESYLATE 10 MG TABLET PO SCH (09:13)
[2019-02-27] MEDS: APIXABAN 2.5 MG TABLET PO SCH (11:39)
[2019-02-27 11:51] LABS: GLUCOMETER DEV NAME(LOC) 6N.2; GLUCOSE,POINT OF CARE 149 MG/DL (70-110)
[2019-02-27] MEDS: ACETAMINOPHEN 325 MG TABLET PO PRN (12:54)
[2019-02-27 15:16] VITALS: BP 142/70
[2019-02-27 20:31] LABS: GLUCOMETER DEV NAME(LOC) 6N.2; GLUCOSE,POINT OF CARE 154 MG/DL (70-110)
== END 2019-02-27 18:00 | DRG 70 ==
LOC: EMS 22:06 → 4E 02-24 01:00
PROVIDERS: ADMIT Internal Medicine; ATTEND Internal Medicine
PROC: 5A1D70Z Performance of Urinary Filtration, Intermittent, Less than 6 Hours Per Day (ICD-10-PCS; principal; 2019-02-25)
PROC: 5A1D70Z Performance of Urinary Filtration, Intermittent, Less than 6 Hours Per Day (ICD-10-PCS; 2019-02-27)
PROC: 3E02340 Introduction of Influenza Vaccine into Muscle, Percutaneous Approach (ICD-10-PCS; 2019-02-27)
DX: G93.41 Metabolic encephalopathy (principal); N18.6 End stage renal disease; I12.0 Hypertensive chronic kidney disease with stage 5 chronic kidney disease or end stage renal disease; E87.1 Hypo-osmolality and hyponatremia; R91.8 Other nonspecific abnormal finding of lung field; Z95.1 Presence of aortocoronary bypass graft; E78.00 Pure hypercholesterolemia, unspecified; Z82.49 Family history of ischemic heart disease and other diseases of the circulatory system; I25.10 Atherosclerotic heart disease of native coronary artery without angina pectoris; E11.22 Type 2 diabetes mellitus with diabetic chronic kidney disease; E78.5 Hyperlipidemia, unspecified; F03.90 Unspecified dementia, unspecified severity, without behavioral disturbance, psychotic disturbance, mood disturbance, and anxiety; E11.40 Type 2 diabetes mellitus with diabetic neuropathy, unspecified; E11.319 Type 2 diabetes mellitus with unspecified diabetic retinopathy without macular edema; E11.21 Type 2 diabetes mellitus with diabetic nephropathy; D63.1 Anemia in chronic kidney disease; G20 Parkinson's disease; Z96.642 Presence of left artificial hip joint; Z90.49 Acquired absence of other specified parts of digestive tract; Z87.11 Personal history of peptic ulcer disease; Z99.2 Dependence on renal dialysis; Z83.3 Family history of diabetes mellitus; Z23 Encounter for immunization
CPT/HCPCS: 70450; 70551; 71250; 76536; 83036; 83605; 84132; 84145; 84439; 84443; 87040; 87340; 90686; 93005; 93306; 97116; 97162; 97530; G0378; J0360; J7030

== ENCOUNTER 2020-09-15 17:31 | Emergency (ER) | payer MEDICARE, MEDICAID ==
[~2020-09-15] VITALS: Ht 160 cm; Wt 70.5 kg
[~2020-09-15 17:31] MED LIST changes: +AMLO-258 PO; -AMLO10TA7 PO; -CARB1TAB41 PO; -ISOS60TA4 PO; +ISOS60TA58 PO; -OLOP2.5D OU; +OLOP2.5D12 OU; +PANT-31 PO; -PANT40TA25 PO; +SERT-158 PO; -SERT50TA12 PO
[2020-09-15 18:15] LABS: BASOPHILS % (AUTO) 0.6 % (0.0-2.0); EOSINOPHILS % (AUTO) 4.3 % (1.0-6.0); HEMATOCRIT 27.5 % (36-46); LYMPHOCYTES # (AUTO) 0.5 K/uL (1.0-4.8); LYMPHOCYTES % (AUTO) 9.2 % (22.0-44.0); MEAN CORPUSCULAR HEMOGLOBIN 30.4 pg (26.0-34.0); MEAN CORPUSCULAR HGB CONC 32.8 G/dL (31.0-37.0); MEAN CORPUSCULAR VOLUME 93 fL (80-100); MONOCYTES # (AUTO) 0.6 K/uL (0.1-1.0); MONOCYTES % (AUTO) 10.6 % (2.0-9.0); NEUTROPHILS # (AUTO) 3.9 K/uL (1.8-7.7); NEUTROPHILS % (AUTO) 75.3 % (40.0-70.0); PLATELET COUNT (AUTO) 178 K/uL (150-450); RED BLOOD CELL COUNT(AUTO) 2.97 MIL/uL (4.00-5.20); RED CELL DISTRIBUTION WIDTH 17.3 % (11.5-14.5)
[2020-09-15 18:27] LABS: CALCIUM, TOTAL 7.7 mg/dL (8.8-10.5); CREATININE 3.1 mg/dL (0.60-1.30); INR 1.1 (0.9-1.1); POTASSIUM 4.2 mmol/L (3.5-5.1); PROTHROMBIN TIME 11.7 SEC (9.4-11.6)
[2020-09-15 18:52] LABS: ALBUMIN 3.3 g/dL (3.4-5.0); BILIRUBIN,TOTAL 0.8 mg/dL (0.1-1.0); TOTAL PROTEIN, SERUM 7.4 g/dL (6.4-8.2)
[2020-09-15 20:00] VITALS: BP 141/65
[2020-09-15] MEDS ORDERED: ONDANSETRON HCL 4 MG TABLET PO ONE (20:00)
== END 2020-09-15 20:26 | disposition home or self-care (01) ==
LOC: EMS 17:31
DX: R11.2 Nausea with vomiting, unspecified (principal); R19.7 Diarrhea, unspecified; I25.10 Atherosclerotic heart disease of native coronary artery without angina pectoris; E11.9 Type 2 diabetes mellitus without complications; I11.9 Hypertensive heart disease without heart failure; E78.00 Pure hypercholesterolemia, unspecified; Z90.89 Acquired absence of other organs
CPT/HCPCS: 36415; 71045; 80053; 82550; 83690; 83880; 84484; 85025; 85610; 85730; 93005; 99285; Q0162

== ENCOUNTER 2021-05-21 00:32 | Emergency (ER) | payer MEDICARE, MEDICAID ==
[~2021-05-21] VITALS: Ht 157.5 cm; Wt 51.2 kg
[~2021-05-21 00:32] MED LIST changes: -BIMA12.5OS OU; +BIMA2.5D4 OU
[2021-05-21] MEDS ORDERED: ACETAMINOPHEN 500 MG TABLET PO ONE (00:45)
[2021-05-21 01:12] LABS: BASOPHILS % (AUTO) 0.7 % (0.0-2.0); EOSINOPHILS % (AUTO) 2.1 % (1.0-6.0); HEMATOCRIT 25.9 % (36-46); HEMOGLOBIN 8.6 g/dL (12.0-16.0); LYMPHOCYTES # (AUTO) 1.1 K/uL (1.0-4.8); LYMPHOCYTES % (AUTO) 13.6 % (22.0-44.0); MEAN CORPUSCULAR HEMOGLOBIN 29.8 pg (26.0-34.0); MEAN CORPUSCULAR HGB CONC 33.3 G/dL (31.0-37.0); MEAN CORPUSCULAR VOLUME 90 fL (80-100); MONOCYTES # (AUTO) 0.8 K/uL (0.1-1.0); MONOCYTES % (AUTO) 10.7 % (2.0-9.0); NEUTROPHILS # (AUTO) 5.6 K/uL (1.8-7.7); NEUTROPHILS % (AUTO) 72.9 % (40.0-70.0); PLATELET COUNT (AUTO) 197 K/uL (150-450); RED BLOOD CELL COUNT(AUTO) 2.89 MIL/uL (4.00-5.20); RED CELL DISTRIBUTION WIDTH 18.5 % (11.5-14.5)
[2021-05-21 01:20] LABS: CALCIUM, TOTAL 9.5 mg/dL (8.8-10.5); CREATININE 3.45 mg/dL (0.60-1.30); POTASSIUM 3.6 mmol/L (3.5-5.1)
[2021-05-21 01:26] LABS: ALBUMIN 2.9 g/dL (3.4-5.0); BILIRUBIN,TOTAL 0.6 mg/dL (0.1-1.0); TOTAL PROTEIN, SERUM 6.7 g/dL (6.4-8.2)
[2021-05-21 01:45] LABS: COVID AG,FIA SOURCE NASOPHARYNGEAL
[2021-05-21 02:08] LABS: INFLUENZA TYPE A NEGATIVE FOR TYPE A (NEGATIVE); INFLUENZA TYPE B NEGATIVE FOR TYPE B (NEGATIVE)
[2021-05-21 02:36] VITALS: BP 139/73
== END 2021-05-21 02:39 | disposition home or self-care (01) ==
LOC: EMS 00:35
DX: M79.10 Myalgia, unspecified site (principal); R10.13 Epigastric pain; H92.02 Otalgia, left ear; Z20.822 Contact with and (suspected) exposure to COVID-19
CPT/HCPCS: 80053; 83690; 85025; 87804; 99284